=== PATIENT | male | born 1980 | race Caucasian/White ===

== ENCOUNTER 2017-10-27 13:15 | Inpatient (IN) | payer OTHER ==
[2017-10-27 15:17] VITALS: BMI 24.0
--- NOTE | 2017-10-27 16:56 | HP ---
COWS - Scale Resting Pulse: 0= [place] 80 or Below Sweatin=Flushed/Facial Moisture Restless Observation: 1= Difficult to Sit Still Pupil Size: 0= Normal to Room Light Bone or Joint Aches: 2= Severe Diffuse Aches Runny Nose/ Eye Tearin= Runny Nose/Eyes GI Upset > 30mins: 1= Stomach Cramp Tremor Observation: 2= Slight Tremor Visible Yawning Observation: 2= >3x During Session Anxiety or Irritability: 2=Irritable/Anxious Goose Flesh Skin: 3=Piloerection COWS Score: 17 Admission ROS S - HPI Chief Complaint: I need to stop using and get my life back. I am interested in suboxone for continued care. Allergies/Adverse Reactions: Allergies Allergy/AdvReac Type Severity Reaction Status Date / Time No Known Allergies Allergy Verified 10/27/17 16:35 History of Present Illness: pt is a 37yr old male with a history of opioid dependence seeking detox for treatment. Exam Limitations: No Limitations - Ebola screening Have you traveled outside of the country in the last 21 days: No Have you had contact with anyone from an Ebola affected area: No Have you been sick,other than usual withdrawal symptoms: No Do you have a fever: No - Review of Systems Constitutional: Chills, Diaphoresis, Loss of Appetite, Night Sweats EENT: reports: Nose Congestion Respiratory: reports: No Symptoms reported Cardiac: reports: No Symptoms Reported GI: reports: Constipated, Poor Fluid Intake : reports: No Symptoms Reported Musculoskeletal: reports: Back Pain, Joint Pain Integumentary: reports: Flushing, Sweating Neuro: reports: Tingling, Tremors Endocrine: reports: Excessive Sweating, Flushing, Intolerance to Cold, Intolerance to Heat Hematology: reports: No Symptoms Reported Psychiatric: reports: Judgement Intact, Mood/Affect Appropiate, Orientated x3, Agitated, Anxious Other Systems: Reviewed and Negative Patient History - Patient Medical History Hx Anemia: No Hx Asthma: No Hx Chronic Obstructive Pulmonary Disease (COPD): No Hx Cancer: No Hx Cardiac Disorders: No Hx Congestive Heart Failure: No Hx Hypertension: No Hx Hypercholesterolemia: No Hx Pacemaker: No HX Cerebrovascular Accident: No Hx Seizures: No Hx Dementia: No Hx Diabetes: No Hx Gastrointestinal Disorders: No Hx Liver Disease: No Hx Genitourinary Disorders: No Hx Sexually Transmitted Disorders: No Hx Renal Disease (ESRD): No Hx Thyroid Disease: No Hx Human Immunodeficiency Virus (HIV): No Hx Hepatitis C: No Hx Depression: No Hx Suicide Attempt: No (denies any S/I ideation) Hx Bipolar Disorder: No Hx Schizophrenia: No - Patient Surgical History Past Surgical History: No Hx Neurologic Surgery: Yes Hx Cataract Extraction: No Hx Cardiac Surgery: No Hx Lung Surgery: No Hx Breast Surgery: No Hx Breast Biopsy: No Hx Abdominal Surgery: No Hx Appendectomy: No Hx Cholecystectomy: No Hx Genitourinary Surgery: No Hx Section: No Hx Orthopedic Surgery: No Hx Hysterectomy: No Other Surgical History: spinal fusion/ right neural implant for spinal shocks - PPD History Previous Implant?: Yes Documented Results: Negative w/o proof Implanted On Prior R Admission?: No PPD to be Administered?: Yes - Reproductive History Patient is a Female of Child Bearing Age (11 -55 yrs old): No - Smoking Cessation Smoking history: Current every day smoker Have you smoked in the past 12 months: Yes Aproximately how many cigarettes per day: 10 Hx Chewing Tobacco Use: No Initiated information on smoking cessation: Yes 'Breaking Loose' booklet given: 10/27/17 - Substance & Tx. History Hx Alcohol Use: Yes Hx Substance Use: Yes Substance Use Type: Alcohol, Heroin Hx Substance Use Treatment: No - Substances Abused Heroin Route: Inhalation Frequency: 1-2 times per week Amount used: 1 bag Age of first use: 37 Date of Last Use: 10/25/17 Marijuana/Hashish Route: Smoking Frequency: Daily Amount used: 1-2 joints Age of first use: 16 Date of Last Use: 10/20/17 Alcohol Route: Oral Frequency: 1-3 times last 30 days Amount used: 6 pk beer Age of first use: 18 Date of Last Use: 10/27/17 oxycodone Route: Oral Frequency: Daily Amount used: 30mg Age of first use: 33 Date of Last Use: 10/26/17 Family Disease History - Family Disease History Family History: Denies Admission Physical Exam BHS - Vital Signs Vital Signs: Vital Signs - 24 hr 10/27/17 15:15 Temperature 98.1 F Pulse Rate 63 Respiratory 19 Rate Blood Pressure 126/72 - Physical General Appearance: Yes: Appropriately Dressed, Moderate Distress, Tremorous, Irritable, Sweating, Anxious HEENTM: Yes: Hearing grossly Normal, Normal Voice, Nasal Congestion, Rhinorrhea Respiratory: Yes: Lungs Clear, Normal Breath Sounds, No Respiratory Distress Neck: Yes: No masses,lesions,Nodules Breast: Yes: Within Normal Limits Cardiology: Yes: Regular Rhythm, Regular Rate, S1, S2 Abdominal: Yes: Normal Bowel Sounds Genitourinary: Yes: Within Normal Limits Back: Yes: Normal Inspection Musculoskeletal: Yes: Back pain Extremities: Yes: Normal Capillary Refill, Non-Tender, Tremors Neurological: Yes: Fully Oriented, Alert, Normal Response Integumentary: Yes: Normal Color, Diaphoresis Lymphatic: Yes: Within Normal Limits - Diagnostic (1) Opioid dependence with withdrawal Current Visit: Yes Status: Chronic (2) Nicotine dependence Current Visit: Yes Status: Chronic Qualifiers: Nicotine product type: cigarettes Substance use status: uncomplicated Qualified Code(s): F17.210 - Nicotine dependence, cigarettes, uncomplicated (3) H/O spinal fusion Current Visit: No Status: Chronic (4) Alcohol abuse Current Visit: No Status: Chronic Cleared for Admission [facility] - Detox or Rehab [facility] Level of Care: Medically Managed Detox Regimen/Protocol: Methadone [facility] Breath Alcohol Content Breath Alcohol Content: 0.020 Urine Drug Screen - Results Drug Screen Negative: No Urine Drug Screen Results: THC-Marijuana, JASPREET-Cocaine, OPI-Opiates
[2017-10-27] MEDS ORDERED: MAG HYDROX/AL HYDROX/SIMETH 30 ML UNIT-DOSE CUP PO PRN (17:11)
[2017-10-27] MEDS ORDERED: MAGNESIUM CITRATE 300 ML BOTTLE PO PRN (17:11)
[2017-10-27] MEDS ORDERED: IBUPROFEN 400 MG TABLET (FP) PO PRN (17:11)
[2017-10-27] MEDS ORDERED: guaiFENesin/D-METHORPHAN HB 10 ML UNIT-DOSE CUPS PO PRN (17:11)
[2017-10-27] MEDS ORDERED: MENTHOL/PHENOL 1 EACH UD MM PRN (17:11)
[2017-10-27] MEDS ORDERED: LOPERAMIDE HCL 2 MG CAPSULE PO PRN (17:11)
[2017-10-27] MEDS ORDERED: P-EPHED 60MG/TRIPROLIDI 2.5MG TABLET PO PRN (17:11)
[2017-10-27] MEDS ORDERED: ACETAMINOPHEN 325 MG TABLET (FP) PO PRN (17:11)
[2017-10-27] MEDS ORDERED: METHADONE HCL 10 MG TABLET (FOR DETOX USE ONLY) PO ONE ×2 (17:45→23:00)
[2017-10-27] MEDS: diazePAM 5 MG TABLET PO PRN ×2 (18:31→22:18)
[2017-10-27] MEDS: hydrOXYzine PAMOATE 50 MG CAPSULE (FP) PO PRN (20:16)
[2017-10-27] MEDS: NICOTINE POLACRILEX 4 MG GUM BC PRN ×2 (20:16→22:20)
[2017-10-27] MEDS ORDERED: MELATONIN 5 MG TABLETS PO PRN (22:00)
[2017-10-27] MEDS: THIAMINE HCL 100 MG TABLET (FP) PO SCH (22:18)
[2017-10-28] MEDS: diazePAM 5 MG TABLET PO PRN ×4 (05:45→21:49)
[2017-10-28] MEDS: NICOTINE POLACRILEX 4 MG GUM BC PRN ×2 (06:00→12:57)
--- NOTE | 2017-10-28 09:55 | PN ---
BHS COWS - Scale Resting Pulse: 0= [place] 80 or Below Sweatin= Chills/Flushing Restless Observation: 3= Extraneous Movement Pupil Size: 1= Pupils >than Normal Bone or Joint Aches: 2= Severe Diffuse Aches Runny Nose/ Eye Tearin= Runny Nose/Eyes GI Upset > 30mins: 2= Nausea/Diarrhea Tremor Observation of Outstretched Hands: 2= Slight Tremor Visible Yawning Observation: 1= 1-2x During Session Anxiety or Irritability: 2=Irritable/Anxious Goose Flesh Skin: 0=Smooth Skin COWS Score: 16 S Progress Note (SOAP) Subjective: alert,irritable,anxious,interrupted sleep,pain in the body and back Objective: 10/28/17 09:52 Vital Signs Temperature 97.5 F L 10/28/17 09:40 Pulse Rate 67 10/28/17 09:40 Respiratory Rate 18 10/28/17 09:40 Blood Pressure 130/74 10/28/17 09:40 O2 Sat by Pulse Oximetry (%) ekg sinus bradycardia 53/min qt/qtc 382/358 no chest pain,no sob,no dizziness labs pending Assessment: 10/28/17 09:54 withdrawal symptom Plan: continue detox,lidoderm patch
[2017-10-28] MEDS ORDERED: METHADONE HCL 10 MG TABLET (FOR DETOX USE ONLY) PO ONE (10:00)
--- NOTE | 2017-10-28 10:04 | PN ---
[facility] CIWA - CIWA Score Nausea/Vomitin Muscle Tremors: 3 Anxiety: 3 Agitation: 2 Paroxysmal Sweats: 1-Minimal Palms Moist Orientation: 0-Oriented Tacttile Disturbances: 1-Very Mild Itch/Numbness Auditory Disturbances: 1-Very Mild Visual Disturbances: 0-None Headache: 2-Mild CIWA-Ar Total Score: 16 BHS COWS - Scale Resting Pulse: 1= [place] 81-100 Sweatin= Chills/Flushing Restless Observation: 3= Extraneous Movement Pupil Size: 1= Pupils >than Normal Bone or Joint Aches: 2= Severe Diffuse Aches Runny Nose/ Eye Tearin= Runny Nose/Eyes GI Upset > 30mins: 2= Nausea/Diarrhea Tremor Observation of Outstretched Hands: 2= Slight Tremor Visible Yawning Observation: 1= 1-2x During Session Anxiety or Irritability: 2=Irritable/Anxious Goose Flesh Skin: 0=Smooth Skin COWS Score: 17 [facility] Progress Note (SOAP) Subjective: alert,irritable,anxious,interrupted sleep,tremor,pain in the body and back Objective: 10/28/17 10:02 Vital Signs Temperature 97.5 F L 10/28/17 09:40 Pulse Rate 67 10/28/17 09:40 Respiratory Rate 18 10/28/17 09:40 Blood Pressure 130/74 10/28/17 09:40 O2 Sat by Pulse Oximetry (%) 10/28/17 10:03 labs pending Assessment: 10/28/17 10:03 withdrawal symptom Plan: continue detox
[2017-10-28 10:06] LABS: HEMATOCRIT 42.1 % (35.4-49); HEMOGLOBIN 14.3 GM/dL (11.7-16.9); MCH 31.4 pg (25.7-33.7); MCHC 33.9 g/dl (32.0-35.9); MEAN CELL VOLUME 92.5 fl (80-96); MEAN PLT VOLUME 7.4 fl (7.5-11.1); PLATELET COUNT 277 K/MM3 (134-434); RBC 4.55 M/mm3 (4.00-5.60); RDW 13.7 % (11.9-15.9); WHITE BLOOD COUNT 6.9 K/mm3 (4.0-10.0)
[2017-10-28] MEDS: PRENATAL VITAMINS W/ FOLIC ACID TABLET (FP) PO SCH (10:56)
[2017-10-28] MEDS: hydrOXYzine PAMOATE 50 MG CAPSULE (FP) PO PRN (10:56)
[2017-10-28] MEDS: cloNIDine HCL 0.1 MG TABLET PO SCH ×2 (10:56→21:49)
[2017-10-28] MEDS: CYCLOBENZAPRINE HCL 10 MG TABLET (FP) PO PRN ×2 (10:57→21:49)
[2017-10-28] MEDS: NICOTINE 21 MG/24 HOURS TOPICAL PATCH TD SCH (10:57)
[2017-10-28 11:42] LABS: ALBUMIN 3.8 g/dl (3.4-5.0); ANION GAP 7 (8-16); BILIRUBIN,TOTAL 0.5 mg/dL (0.2-1.0); BLOOD UREA NITROGEN 9 mg/dL (7-18); CHLORIDE 108 mmol/L (98-107); CO2 27 mmol/L (21-32); GLUCOSE,RANDOM 83 mg/dL (74-106); POTASSIUM 4.1 mmol/L (3.5-5.1); SGOT/AST 12 U/L (15-37); SGPT/ALT 18 U/L (12-78); SODIUM 142 mmol/L (136-145); TOT PROT 6.7 g/dl (6.4-8.2)
[2017-10-28 11:43] LABS: ALK PHOS 51 U/L (45-117)
--- NOTE | 2017-10-28 12:25 | CONSULT ---
[facility] Psychiatric Consult - Data Date of interview: 10/28/17 Admission source: [facility] Identifying data: This is 37 yo Single H male father of 2 ,resides with family, supported by family. Substance Abuse History: Patient reports drinking since 18 yo,6 packs daily, marijuana since 16 yo,1-2 joints daily,oxycodone since 33 yo about 30 mg po daily,heroin since 37 yo,1 bag daily. Medical History: H/O spinal fusion(back trauma). Psychiatric History: Patient reports sleeping difficulties,periods depressed mood,anxiety.He didint addressed these issues in the past.No suicidal attempts, no psychiatric hospitalizations reported.Patient is willing to start Doxepin 50 mg po hs,Remeron 15 mg po hs. Physical/Sexual Abuse/Trauma History: denies Mental Status Exam - Mental Status Exam Alert and Oriented to: Time, Place, Person Cognitive Function: Grossly Intact Patient Appearance: Unkempt Mood: Sad, Anxious Affect: Mood Congruent, Labile Patient Behavior: Cooperative Speech Pattern: Clear Voice Loudness: Normal Thought Process: Goal Oriented Thought Disorder: Not Present Hallucinations: Denies Suicidal Ideation: Denies Homicidal Ideation: Denies Insight/Judgement: Fair Sleep: Difficulty falling asleep Appetite: Good Muscle strength/Tone: Normal Gait/Station: Normal Psychiatric Findings - Problem List ([place] 1, 2,3) (1) Opioid dependence with withdrawal Current Visit: Yes Status: Chronic (2) Nicotine dependence Current Visit: Yes Status: Chronic Qualifiers: Nicotine product type: cigarettes Substance use status: uncomplicated Qualified Code(s): F17.210 - Nicotine dependence, cigarettes, uncomplicated (3) H/O spinal fusion Current Visit: Yes Status: Chronic (4) Alcohol abuse Current Visit: Yes Status: Chronic (5) Cannabis dependence Current Visit: Yes Status: Chronic (6) Substance induced mood disorder Current Visit: Yes Status: Chronic - Initial Treatment Plan Initial Treatment Plan: Doxepin 50 mg po hs,Remeron 15 mg po hs. will monitor progrerss.
[2017-10-28] MEDS: LIDOCAINE 5% TOPICAL PATCH TP SCH (12:31)
[2017-10-28] MEDS: THIAMINE HCL 100 MG TABLET (FP) PO SCH (21:50)
[2017-10-28] MEDS: MIRTAZAPINE 15 MG TABLET (FP) PO SCH (21:50)
[2017-10-28] MEDS ORDERED: DOXEPIN HCL 50 MG CAPSULE PO SCH (22:00)
[2017-10-28] MEDS: LIDOCAINE PATCH REMOVAL MC SCH (22:27)
[2017-10-29] MEDS: diazePAM 5 MG TABLET PO PRN ×3 (08:06→17:49)
--- NOTE | 2017-10-29 09:04 | EKG ---
Test Reason : Blood Pressure : / mmHG Vent. Rate : 053 BPM Atrial Rate : 053 BPM P-R Int : 156 ms QRS Dur : 090 ms QT Int : 382 ms P-R-T Axes : 035 051 027 degrees QTc Int : 358 ms SINUS BRADYCARDIA OTHERWISE NORMAL ECG NO PREVIOUS ECGS AVAILABLE Confirmed by TRAVIS CRAFT, ALIVIA ([id number]) on 10/29/2017 9:03:42 AM Referred By: Confirmed By:ALIVIA ROBLES MD
[2017-10-29] MEDS ORDERED: METHADONE HCL 5 MG TABLET (FOR DETOX USE ONLY) PO ONE (10:00)
[2017-10-29] MEDS: PRENATAL VITAMINS W/ FOLIC ACID TABLET (FP) PO SCH (10:10)
[2017-10-29] MEDS: cloNIDine HCL 0.1 MG TABLET PO SCH ×2 (10:10→22:08)
[2017-10-29] MEDS: LIDOCAINE 5% TOPICAL PATCH TP SCH (10:11)
[2017-10-29] MEDS: NICOTINE 21 MG/24 HOURS TOPICAL PATCH TD SCH (10:11)
[2017-10-29] MEDS: NICOTINE POLACRILEX 4 MG GUM BC PRN ×4 (10:12→20:25)
[2017-10-29] MEDS: hydrOXYzine PAMOATE 50 MG CAPSULE (FP) PO PRN ×2 (10:12→18:42)
--- NOTE | 2017-10-29 11:42 | PN ---
BHS COWS - Scale Resting Pulse: 0= [place] 80 or Below Sweatin= Chills/Flushing Restless Observation: 3= Extraneous Movement Pupil Size: 1= Pupils >than Normal Bone or Joint Aches: 2= Severe Diffuse Aches Runny Nose/ Eye Tearin= Runny Nose/Eyes GI Upset > 30mins: 2= Nausea/Diarrhea Tremor Observation of Outstretched Hands: 2= Slight Tremor Visible Yawning Observation: 1= 1-2x During Session Anxiety or Irritability: 2=Irritable/Anxious Goose Flesh Skin: 0=Smooth Skin COWS Score: 16 S Progress Note (SOAP) Subjective: alert,irritable,anxious,pain in the body and back,interrupted sleep,tremor Objective: 10/29/17 11:41 Vital Signs Temperature 96.8 F L 10/29/17 09:49 Pulse Rate 58 L 10/29/17 09:49 Respiratory Rate 18 10/29/17 09:49 Blood Pressure 112/65 10/29/17 09:49 O2 Sat by Pulse Oximetry (%) 10/29/17 11:41 Laboratory Last Values WBC 6.9 K/mm3 (4.0-10.0) 10/28/17 07:40 RBC 4.55 M/mm3 (4.00-5.60) 10/28/17 07:40 Hgb 14.3 GM/dL (11.7-16.9) 10/28/17 07:40 Hct 42.1 % (35.4-49) 10/28/17 07:40 MCV 92.5 fl (80-96) 10/28/17 07:40 MCH 31.4 pg (25.7-33.7) 10/28/17 07:40 MCHC 33.9 g/dl (32.0-35.9) 10/28/17 07:40 RDW 13.7 % (11.9-15.9) 10/28/17 07:40 Plt Count 277 K/MM3 (134-434) 10/28/17 07:40 MPV 7.4 fl (7.5-11.1) L 10/28/17 07:40 Sodium 142 mmol/L (136-145) 10/28/17 07:40 Potassium 4.1 mmol/L (3.5-5.1) 10/28/17 07:40 Chloride 108 mmol/L (98-107) H 10/28/17 07:40 Carbon Dioxide 27 mmol/L (21-32) 10/28/17 07:40 Anion Gap 7 (8-16) L 10/28/17 07:40 BUN 9 mg/dL (7-18) 10/28/17 07:40 Creatinine 1.0 mg/dL (0.7-1.3) 10/28/17 07:40 Creat Clearance w eGFR > 60 (>60) 10/28/17 07:40 Random Glucose 83 mg/dL (74-106) 10/28/17 07:40 Calcium 9.0 mg/dL (8.5-10.1) 10/28/17 07:40 Total Bilirubin 0.5 mg/dL (0.2-1.0) 10/28/17 07:40 AST 12 U/L (15-37) L 10/28/17 07:40 ALT 18 U/L (12-78) 10/28/17 07:40 Alkaline Phosphatase 51 U/L (45-117) 10/28/17 07:40 Total Protein 6.7 g/dl (6.4-8.2) 10/28/17 07:40 Albumin 3.8 g/dl (3.4-5.0) 10/28/17 07:40 HIV 1&2 Antibody Screen Negative 10/28/17 07:40 HIV P24 Antigen Negative 10/28/17 07:40 Assessment: 10/29/17 11:41 withdrawal symptom Plan: continue detox,psychiatric evaluation
[2017-10-29] MEDS: CYCLOBENZAPRINE HCL 10 MG TABLET (FP) PO PRN ×2 (12:19→18:42)
[2017-10-29] MEDS: MAGNESIUM HYDROX 2400MG/30ML ORAL SUSPENSION 30 ML CUP PO PRN (12:19)
--- NOTE | 2017-10-29 15:54 | PN ---
Psychiatric Progress Note Vital Signs: Vital Signs Period Temp Pulse Resp BP Sys/Vázquez Pulse Ox Last 24 Hr 96.7 F-97.5 F 47-58 16-20 100-112/64-76 Date of Session: 10/29/17 Chief Complaint:: " I cannot sleep at night.Nothing works." HPI: Day 3 of detoxification treatment for alcohol and opiod dependence.patient is responding favorably to treatment except for complaint of chronic insomnia. ROS: Unremarkable. Current Medications: Active Medications Generic Name Dose Route Start Last Admin Trade Name Freq PRN Reason Stop Dose Admin Acetaminophen 650 mg 10/27/17 17:11 Tylenol - PO Q4H PRN FEVER Al Hydroxide/Mg Hydroxide 30 ml 10/27/17 17:11 Mylanta Oral Suspension - PO Q6H PRN DYSPEPSIA Clonidine 0.1 mg 10/28/17 10:00 10/29/17 10:10 Catapres - PO 0.1 mg BID LEIDY Administration Cyclobenzaprine HCl 10 mg 10/28/17 09:55 10/29/17 12:19 Flexeril - PO 10 mg TID PRN Administration MUSCLE SPASMS Diazepam 10 mg 10/27/17 17:11 10/29/17 12:19 Valium - PO 10/30/17 17:10 10 mg Q4H PRN Administration WITHDRAWAL(CONT SUBST) Doxepin HCl 50 mg 10/28/17 22:00 10/28/17 21:49 Sinequan - PO 50 mg HS LEIDY Administration Eucalyptus/Menthol/Phenol/Sorbitol 1 each 10/27/17 17:11 Cepastat Lozenge - MM Q4H PRN SORE THROAT Guaifenesin 10 ml 10/27/17 17:11 Robitussin Dm - PO Q6H PRN COUGH Hydroxyzine Pamoate 50 mg 10/27/17 17:11 10/29/17 10:12 Vistaril - PO 50 mg Q4H PRN Administration AGITATION Ibuprofen 400 mg 10/27/17 17:11 Motrin - PO Q6H PRN PAIN LEVEL 4-6 Lidocaine 1 patch 10/28/17 10:00 10/29/17 10:11 Lidoderm Patch - TP 1 patch DAILY LEIDY Administration Loperamide HCl 4 mg 10/27/17 17:11 Imodium - PO Q6H PRN DIARRHEA Magnesium Citrate 300 ml 10/27/17 17:11 Citroma - PO Q48H PRN CONSTIPATION Magnesium Hydroxide 30 ml 10/27/17 17:11 10/29/17 12:19 Milk Of Magnesia - PO 30 ml DAILY PRN Administration CONSTIPATION Melatonin 5 mg 10/27/17 22:00 Melatonin PO HS PRN INSOMNIA Methadone HCl 5 mg 11/01/17 06:00 Dolophine - PO 11/01/17 06:01 ONCE@0600 ONE Methadone HCl 15 mg 10/30/17 10:00 Dolophine - PO 10/30/17 10:01 ONCE ONE Methadone HCl 10 mg 10/31/17 10:00 Dolophine - PO 10/31/17 10:01 ONCE ONE Mirtazapine 15 mg 10/28/17 22:00 10/28/17 21:50 Remeron - PO 15 mg HS LEIDY Administration Miscellaneous 1 each 10/28/17 22:00 10/28/17 22:27 Lidoderm Patch Removal MC Not Given DAILY@2200 LEIDY Nicotine 21 mg 10/28/17 10:00 10/29/17 10:11 Nicoderm Patch - TD Not Given DAILY LEIDY Nicotine Polacrilex 4 mg 10/27/17 17:11 10/29/17 13:17 Nicorette Gum - BC 4 mg Q2H PRN Administration NICOTINE REPLACEMENT RX Multivit/Folic Acid/Iron 1 tab 10/28/17 10:00 10/29/17 10:10 Vitamins (Sjr) - PO 1 tab DAILY LEIDY Administration Pseudoephedrine/Triprolidine 1 combo 10/27/17 17:11 Actifed - PO TID PRN NASAL CONGESTION Thiamine HCl 100 mg 10/27/17 22:00 10/28/17 21:50 Vitamin B1 - PO 100 mg HS LEIDY Administration Medication(s) Change(s): Patient states that remeron and doxepin " are not working " and he is requesting " something else like xanax for exemple " .Patient is redirected about medication-seeking behavior.A selection of hypnotic agents is discussed with the patient.Mr Green agrees to a trial of seroquel at a low dose.Side effects/benefits discussed in this session.Patient is made aware of the risk of weight gain,metabolic syndrome,sedation/potential for falls,cardiovascular adverse events and abnormal involuntary movements (in particular).Seroquel 50 mg po hs.Ordered.Mr Green agrees to this plan of care.Doxepin and melatonin are discontinued.Seroquel for titration as clinically indicated in next few days. Current Side Effect: No Lab tests ordered: No Lab tests reviewed: Yes Provider note:: Chart reviewed.Dr Gilmore 's note (10/28/17) : read and appreciated.Case was referred and presented by medical attending, Dr Bennett.Patient is examined.Confirms sleep latency and frequent awakenings during the night.Complains of fatigue in the morning.Otherwise,hospital course is unremarkable.Patient is always visible on the unit.Sociable,conversant and active.Adequate performance in the execution of ADLs.Stable mental status.Benefits of a good sleep hygiene + addition of a low dose of quetiapine : discussed with patient.Mr Green is agreeable with this plan of care. Total face to face time:: 25 Mental Status Exam - Mental Status Exam Alert and Oriented to: Time, Place, Person Cognitive Function: Good Patient Appearance: Well Groomed Mood: Anxious, Hopeful Affect: Appropriate, Normal Range Patient Behavior: Appropriate, Cooperative Speech Pattern: Clear, Appropriate Voice Loudness: Normal Thought Process: Goal Oriented Thought Disorder: Not Present Hallucinations: Denies Suicidal Ideation: Denies Homicidal Ideation: Denies Insight/Judgement: Fair Sleep: Poorly, Difficulty falling asleep Appetite: Good Muscle strength/Tone: Normal Gait/Station: Normal Psychiatric Treatment Plan - Problem List (1) Insomnia Current Visit: Yes (2) Cannabis dependence Current Visit: Yes (3) Nicotine dependence Current Visit: Yes Qualifiers: Nicotine product type: cigarettes Substance use status: uncomplicated Qualified Code(s): F17.210 - Nicotine dependence, cigarettes, uncomplicated (4) Opioid dependence with withdrawal Current Visit: Yes (5) Substance induced mood disorder Current Visit: Yes
[2017-10-29 18:52] LABS: URINE APPEARANCE CLEAR; URINE BILIRUBIN NEGATIVE (<2.0 mg/dL); URINE COLOR LTYELLOW; URINE GLUCOSE (UA) NEGATIVE (NEGATIVE); URINE KETONE NEGATIVE (NEGATIVE); URINE NITRITE NEGATIVE (NEGATIVE); URINE PROTEIN NEGATIVE (NEGATIVE); URINE UROBILINOGEN NEGATIVE mg/dL (0.2-1.0)
[2017-10-29 18:59] LABS: URINE LEUK ESTERASE 1+ (NEGATIVE)
[2017-10-29 19:05] LABS: EPI CELLS RARE /HPF (FEW)
[2017-10-29] MEDS: THIAMINE HCL 100 MG TABLET (FP) PO SCH (22:08)
[2017-10-29] MEDS: MIRTAZAPINE 15 MG TABLET (FP) PO SCH (22:08)
[2017-10-29] MEDS: QUEtiapine FUMARATE 50 MG TABLET PO SCH (22:08)
[2017-10-29] MEDS: LIDOCAINE PATCH REMOVAL MC SCH (23:50)
[2017-10-30] MEDS: diazePAM 5 MG TABLET PO PRN ×3 (07:09→16:25)
[2017-10-30] MEDS: NICOTINE POLACRILEX 4 MG GUM BC PRN ×4 (07:09→20:15)
[2017-10-30] MEDS ORDERED: METHADONE HCL 5 MG TABLET (FOR DETOX USE ONLY) PO ONE (10:00)
[2017-10-30] MEDS: hydrOXYzine PAMOATE 50 MG CAPSULE (FP) PO PRN ×2 (10:11→18:33)
[2017-10-30] MEDS: PRENATAL VITAMINS W/ FOLIC ACID TABLET (FP) PO SCH (10:11)
[2017-10-30] MEDS: NICOTINE 21 MG/24 HOURS TOPICAL PATCH TD SCH (10:12)
[2017-10-30] MEDS: cloNIDine HCL 0.1 MG TABLET PO SCH ×2 (10:12→22:44)
[2017-10-30] MEDS: CYCLOBENZAPRINE HCL 10 MG TABLET (FP) PO PRN (10:12)
[2017-10-30] MEDS: LIDOCAINE 5% TOPICAL PATCH TP SCH (11:15)
--- NOTE | 2017-10-30 11:58 | PN ---
BHS Progress Note (SOAP) Subjective: body aches sweat gi distress tremor restlessness anxiety Objective: 10/30/17 11:56 Vital Signs Temperature 97.3 F L 10/30/17 09:56 Pulse Rate 65 10/30/17 09:56 Respiratory Rate 18 10/30/17 09:56 Blood Pressure 112/75 10/30/17 09:56 O2 Sat by Pulse Oximetry (%) Laboratory Last Values WBC 6.9 K/mm3 (4.0-10.0) 10/28/17 07:40 RBC 4.55 M/mm3 (4.00-5.60) 10/28/17 07:40 Hgb 14.3 GM/dL (11.7-16.9) 10/28/17 07:40 Hct 42.1 % (35.4-49) 10/28/17 07:40 MCV 92.5 fl (80-96) 10/28/17 07:40 MCH 31.4 pg (25.7-33.7) 10/28/17 07:40 MCHC 33.9 g/dl (32.0-35.9) 10/28/17 07:40 RDW 13.7 % (11.9-15.9) 10/28/17 07:40 Plt Count 277 K/MM3 (134-434) 10/28/17 07:40 MPV 7.4 fl (7.5-11.1) L 10/28/17 07:40 Sodium 142 mmol/L (136-145) 10/28/17 07:40 Potassium 4.1 mmol/L (3.5-5.1) 10/28/17 07:40 Chloride 108 mmol/L (98-107) H 10/28/17 07:40 Carbon Dioxide 27 mmol/L (21-32) 10/28/17 07:40 Anion Gap 7 (8-16) L 10/28/17 07:40 BUN 9 mg/dL (7-18) 10/28/17 07:40 Creatinine 1.0 mg/dL (0.7-1.3) 10/28/17 07:40 Creat Clearance w eGFR > 60 (>60) 10/28/17 07:40 Random Glucose 83 mg/dL (74-106) 10/28/17 07:40 Calcium 9.0 mg/dL (8.5-10.1) 10/28/17 07:40 Total Bilirubin 0.5 mg/dL (0.2-1.0) 10/28/17 07:40 AST 12 U/L (15-37) L 10/28/17 07:40 ALT 18 U/L (12-78) 10/28/17 07:40 Alkaline Phosphatase 51 U/L (45-117) 10/28/17 07:40 Total Protein 6.7 g/dl (6.4-8.2) 10/28/17 07:40 Albumin 3.8 g/dl (3.4-5.0) 10/28/17 07:40 Urine Color Ltyellow 10/29/17 Unknown Urine Appearance Clear 10/29/17 Unknown Urine pH 6.0 (5.0-8.0) 10/29/17 Unknown Ur Specific [place] 1.008 (1.001-1.035) 10/29/17 Unknown Urine Protein Negative (NEGATIVE) 10/29/17 Unknown Urine Glucose (UA) Negative (NEGATIVE) 10/29/17 Unknown Urine Ketones Negative (NEGATIVE) 10/29/17 Unknown Urine Blood Negative (NEGATIVE) 10/29/17 Unknown Urine Nitrite Negative (NEGATIVE) 10/29/17 Unknown Urine Bilirubin Negative (<2.0 mg/dL) 10/29/17 Unknown Urine Urobilinogen Negative mg/dL (0.2-1.0) 10/29/17 Unknown Ur Leukocyte Esterase 1+ (NEGATIVE) H 10/29/17 Unknown Urine WBC (Auto) 3 /hpf (3-5) 10/29/17 Unknown Urine RBC (Auto) <1 /hpf (0-3) 10/29/17 Unknown Ur Epithelial Cells Rare /HPF (FEW) 10/29/17 Unknown RPR Titer Nonreactive (NONREACTIVE) 10/28/17 07:40 HIV 1&2 Antibody Screen Negative 10/28/17 07:40 HIV P24 Antigen Negative 10/28/17 07:40 lab noted repeat ua Assessment: 10/30/17 11:57 withdrawal sx Plan: continue detox
[2017-10-30] MEDS: LIDOCAINE PATCH REMOVAL MC SCH (22:43)
[2017-10-30] MEDS: THIAMINE HCL 100 MG TABLET (FP) PO SCH (22:43)
[2017-10-30] MEDS: QUEtiapine FUMARATE 50 MG TABLET PO SCH (22:44)
[2017-10-30] MEDS: MIRTAZAPINE 15 MG TABLET (FP) PO SCH (22:44)
[2017-10-30 22:52] LABS: URINE APPEARANCE SLCLOUDY; URINE BILIRUBIN NEGATIVE (<2.0 mg/dL); URINE COLOR YELLOW; URINE GLUCOSE (UA) NEGATIVE (NEGATIVE); URINE KETONE NEGATIVE (NEGATIVE); URINE LEUK ESTERASE NEGATIVE (NEGATIVE); URINE NITRITE NEGATIVE (NEGATIVE); URINE PROTEIN NEGATIVE (NEGATIVE); URINE UROBILINOGEN NEGATIVE mg/dL (0.2-1.0)
[2017-10-31] MEDS: NICOTINE POLACRILEX 4 MG GUM BC PRN ×5 (06:23→22:30)
[2017-10-31] MEDS: hydrOXYzine PAMOATE 50 MG CAPSULE (FP) PO PRN ×3 (08:12→17:30)
[2017-10-31] MEDS ORDERED: METHADONE HCL 10 MG TABLET (FOR DETOX USE ONLY) PO ONE (10:00)
[2017-10-31] MEDS: NICOTINE 21 MG/24 HOURS TOPICAL PATCH TD SCH (10:29)
[2017-10-31] MEDS: cloNIDine HCL 0.1 MG TABLET PO SCH ×2 (10:29→22:26)
[2017-10-31] MEDS: PRENATAL VITAMINS W/ FOLIC ACID TABLET (FP) PO SCH (10:29)
[2017-10-31] MEDS: LIDOCAINE 5% TOPICAL PATCH TP SCH (10:30)
[2017-10-31] MEDS ORDERED: hydrOXYzine PAMOATE 50 MG CAPSULE (FP) PO PRN (11:12)
--- NOTE | 2017-10-31 11:19 | PN ---
Psychiatric Progress Note Vital Signs: Vital Signs Period Temp Pulse Resp BP Sys/Vázquez Pulse Ox Last 24 Hr 97.0 F-99.1 F 47-74 16-20 90-114/55-70 Date of Session: 10/31/17 Chief Complaint:: Anxiety, insomnia HPI: Patient reports not sleeping well. reports anxiety at day time, reports taking Seroquel prior to admission for insomnia 200mg po qhs, denies suicidal, homicidal ideation, asking for medications intervention. Current Medications: Active Medications Generic Name Dose Route Start Last Admin Trade Name Freq PRN Reason Stop Dose Admin Acetaminophen 650 mg 10/27/17 17:11 Tylenol - PO Q4H PRN FEVER Al Hydroxide/Mg Hydroxide 30 ml 10/27/17 17:11 Mylanta Oral Suspension - PO Q6H PRN DYSPEPSIA Clonidine 0.1 mg 10/28/17 10:00 10/31/17 10:29 Catapres - PO Not Given BID LEIDY Cyclobenzaprine HCl 10 mg 10/31/17 10:45 Flexeril - PO BID ELIDY Eucalyptus/Menthol/Phenol/Sorbitol 1 each 10/27/17 17:11 Cepastat Lozenge - MM Q4H PRN SORE THROAT Guaifenesin 10 ml 10/27/17 17:11 Robitussin Dm - PO Q6H PRN COUGH Hydroxyzine Pamoate 100 mg 10/31/17 11:12 Vistaril - PO Q4H PRN AGITATION Ibuprofen 400 mg 10/27/17 17:11 10/29/17 18:42 Motrin - PO 400 mg Q6H PRN Administration PAIN LEVEL 4-6 Lidocaine 1 patch 10/28/17 10:00 10/31/17 10:30 Lidoderm Patch - TP 1 patch DAILY LEIDY Administration Loperamide HCl 4 mg 10/27/17 17:11 Imodium - PO Q6H PRN DIARRHEA Magnesium Citrate 300 ml 10/27/17 17:11 Citroma - PO Q48H PRN CONSTIPATION Magnesium Hydroxide 30 ml 10/27/17 17:11 10/29/17 12:19 Milk Of Magnesia - PO 30 ml DAILY PRN Administration CONSTIPATION Methadone HCl 5 mg 11/01/17 06:00 Dolophine - PO 11/01/17 06:01 ONCE@0600 ONE Mirtazapine 15 mg 10/28/17 22:00 08/05/18 22:44 Remeron - PO 15 mg HS [facility] Administration Miscellaneous 1 each 10/28/17 22:00 10/30/17 22:43 Lidoderm Patch Removal MC Not Given DAILY@2200 [facility] Nicotine 21 mg 10/28/17 10:00 10/31/17 10:29 Nicoderm Patch - TD 21 mg DAILY LEIDY Administration Nicotine Polacrilex 4 mg 10/27/17 17:11 10/31/17 06:23 Nicorette Gum - BC 4 mg Q2H PRN Administration NICOTINE REPLACEMENT RX Multivit/Folic Acid/Iron 1 tab 10/28/17 10:00 10/31/17 10:29 Vitamins (Sjr) - PO 1 tab DAILY [facility] Administration Pseudoephedrine/Triprolidine 1 combo 10/27/17 17:11 Actifed - PO TID PRN NASAL CONGESTION Quetiapine Fumarate 200 mg 10/31/17 11:12 Seroquel - PO HS [facility] Thiamine HCl 100 mg 10/27/17 22:00 10/30/17 22:43 Vitamin B1 - PO 100 mg HS [facility] Administration Medication(s) Change(s): Seroquel 200mg po qhs. Vistaril 100mg po prn, q4, for anxiety and insomnia Mental Status Exam - Mental Status Exam Alert and Oriented to: Place, Person Cognitive Function: Fair Patient Appearance: Unkempt Mood: Anxious, Irritable Affect: Mood Congruent Patient Behavior: Cooperative Speech Pattern: Appropriate Voice Loudness: Normal Thought Process: Circumstantial, Goal Oriented Thought Disorder: Being Controlled Hallucinations: Denies Suicidal Ideation: Denies Homicidal Ideation: Denies Insight/Judgement: Fair Sleep: Difficulty falling asleep Appetite: Weight loss Muscle strength/Tone: Normal Gait/Station: Normal Additional Comments: Seroquel 200mg po qhs. Vistaril 100mg po prn, q4, for anxiety and insomnia Psychiatric Treatment Plan - Problem List (1) Opioid-induced sleep disorder, insomnia type, with onset during discontinuation/withdrawal Current Visit: Yes (2) Opioid-induced anxiety disorder Current Visit: Yes (3) Cannabis dependence Current Visit: Yes (4) Nicotine dependence Current Visit: Yes Qualifiers: Nicotine product type: cigarettes Substance use status: uncomplicated Qualified Code(s): F17.210 - Nicotine dependence, cigarettes, uncomplicated (5) Opioid dependence with withdrawal Current Visit: Yes (6) Substance induced mood disorder Current Visit: Yes Initial treatment plan: Seroquel 200mg po qhs. Vistaril 100mg po prn, q4, for anxiety and insomnia
[2017-10-31] MEDS: CYCLOBENZAPRINE HCL 10 MG TABLET (FP) PO SCH ×2 (12:28→22:26)
--- NOTE | 2017-10-31 16:42 | PN ---
BHS Progress Note (SOAP) Subjective: Body Aches, Sweating, Anxious, Interrupted Sleep. Objective: PATIENT A & O X 3, OBSERVED AMBULATING ON UNIT. NO ACUTE DISTRESS. 10/31/17 16:40 Vital Signs Temperature 96.9 F L 10/31/17 13:51 Pulse Rate 66 10/31/17 13:51 Respiratory Rate 18 10/31/17 13:51 Blood Pressure 106/70 10/31/17 13:51 O2 Sat by Pulse Oximetry (%) Laboratory Tests 10/28/17 10/28/17 10/28/17 07:40 07:40 07:40 WBC 6.9 RBC 4.55 Hgb 14.3 Hct 42.1 MCV 92.5 MCH 31.4 MCHC 33.9 RDW 13.7 Plt Count 277 MPV 7.4 L Sodium 142 Potassium 4.1 Chloride 108 H Carbon Dioxide 27 Anion Gap 7 L BUN 9 Creatinine 1.0 Creat Clearance w eGFR > 60 Random Glucose 83 Calcium 9.0 Total Bilirubin 0.5 AST 12 L ALT 18 Alkaline Phosphatase 51 Total Protein 6.7 Albumin 3.8 Urine Color Urine Appearance Urine pH Ur Specific [place] Urine Protein Urine Glucose (UA) Urine Ketones Urine Blood Urine Nitrite Urine Bilirubin Urine Urobilinogen Ur Leukocyte Esterase Urine WBC (Auto) Urine RBC (Auto) Ur Epithelial Cells RPR Titer HIV 1&2 Antibody Screen Negative HIV P24 Antigen Negative 10/28/17 10/29/17 10/30/17 07:40 Unknown 16:56 WBC RBC Hgb Hct MCV MCH MCHC RDW Plt Count MPV Sodium Potassium Chloride Carbon Dioxide Anion Gap BUN Creatinine Creat Clearance w eGFR Random Glucose Calcium Total Bilirubin AST ALT Alkaline Phosphatase Total Protein Albumin Urine Color Ltyellow Yellow Urine Appearance Clear Slcloudy Urine pH 6.0 5.0 Ur Specific [place] 1.008 1.015 Urine Protein Negative Negative Urine Glucose (UA) Negative Negative Urine Ketones Negative Negative Urine Blood Negative Negative Urine Nitrite Negative Negative Urine Bilirubin Negative Negative Urine Urobilinogen Negative Negative Ur Leukocyte Esterase 1+ H Negative Urine WBC (Auto) 3 Urine RBC (Auto) <1 Ur Epithelial Cells Rare RPR Titer Nonreactive HIV 1&2 Antibody Screen HIV P24 Antigen LABS NOTED. Assessment: 10/31/17 16:41 WITHDRAWAL SYMPTOMS. Plan: CONTINUE DETOX. PRN FLEXERIL FOR BODY ACHES / MUSCLE SPASMS.
[2017-10-31] MEDS: MAGNESIUM HYDROX 2400MG/30ML ORAL SUSPENSION 30 ML CUP PO PRN (17:33)
[2017-10-31] MEDS ORDERED: QUEtiapine FUMARATE 200 MG TABLET PO SCH (22:00)
[2017-10-31] MEDS: MIRTAZAPINE 15 MG TABLET (FP) PO SCH (22:26)
[2017-10-31] MEDS: THIAMINE HCL 100 MG TABLET (FP) PO SCH (22:26)
[2017-10-31] MEDS: LIDOCAINE PATCH REMOVAL MC SCH (23:25)
[2017-11-01] MEDS: hydrOXYzine PAMOATE 50 MG CAPSULE (FP) PO PRN (05:22)
[2017-11-01] MEDS ORDERED: METHADONE HCL 5 MG TABLET (FOR DETOX USE ONLY) PO ONE (06:00)
[2017-11-01 06:34] VITALS: BP 100/66; PULSE 82; TEMP 97.6
[2017-11-01] MEDS: NICOTINE POLACRILEX 4 MG GUM BC PRN (07:03)
--- NOTE | 2017-11-01 16:44 | PN ---
BHS Progress Note (SOAP) Subjective: Patient reports back ache (patient has history of chronic injury). Patient denies any other withdrawal symptoms. Objective: PATIENT A & O X 3, OBSERVED AMBULATING ON UNIT. NO ACUTE DISTRESS. 11/01/17 16:43 Vital Signs Temperature 97.6 F 11/01/17 06:33 Pulse Rate 82 11/01/17 06:33 Respiratory Rate 18 11/01/17 06:33 Blood Pressure 100/66 11/01/17 06:33 O2 Sat by Pulse Oximetry (%) Laboratory Tests 10/28/17 10/28/17 10/28/17 07:40 07:40 07:40 WBC 6.9 RBC 4.55 Hgb 14.3 Hct 42.1 MCV 92.5 MCH 31.4 MCHC 33.9 RDW 13.7 Plt Count 277 MPV 7.4 L Sodium 142 Potassium 4.1 Chloride 108 H Carbon Dioxide 27 Anion Gap 7 L BUN 9 Creatinine 1.0 Creat Clearance w eGFR > 60 Random Glucose 83 Calcium 9.0 Total Bilirubin 0.5 AST 12 L ALT 18 Alkaline Phosphatase 51 Total Protein 6.7 Albumin 3.8 Urine Color Urine Appearance Urine pH Ur Specific [place] Urine Protein Urine Glucose (UA) Urine Ketones Urine Blood Urine Nitrite Urine Bilirubin Urine Urobilinogen Ur Leukocyte Esterase Urine WBC (Auto) Urine RBC (Auto) Ur Epithelial Cells RPR Titer HIV 1&2 Antibody Screen Negative HIV P24 Antigen Negative 10/28/17 10/29/17 10/30/17 07:40 Unknown 16:56 WBC RBC Hgb Hct MCV MCH MCHC RDW Plt Count MPV Sodium Potassium Chloride Carbon Dioxide Anion Gap BUN Creatinine Creat Clearance w eGFR Random Glucose Calcium Total Bilirubin AST ALT Alkaline Phosphatase Total Protein Albumin Urine Color Ltyellow Yellow Urine Appearance Clear Slcloudy Urine pH 6.0 5.0 Ur Specific [place] 1.008 1.015 Urine Protein Negative Negative Urine Glucose (UA) Negative Negative Urine Ketones Negative Negative Urine Blood Negative Negative Urine Nitrite Negative Negative Urine Bilirubin Negative Negative Urine Urobilinogen Negative Negative Ur Leukocyte Esterase 1+ H Negative Urine WBC (Auto) 3 Urine RBC (Auto) <1 Ur Epithelial Cells Rare RPR Titer Nonreactive HIV 1&2 Antibody Screen HIV P24 Antigen LABS NOTED. Assessment: 11/01/17 16:44 COMPLETION OF DETOX REGIMEN. Plan: PATIENT SCHEDULED FOR DISCHARGE FROM DETOX UNIT TODAY.
--- NOTE | 2017-11-01 16:49 | DS ---
[facility] Detox Discharge Summary Admission Date: 10/27/17 Discharge Date: 11/01/17 - History Present History: Alcohol Dependence, Cannabis Dependence, Opioid Dependence Additional Comments: PATIENT GOING TO [facility] [place] OUTPATIENT PROGRAM FOR AFTERCARE. PATIENT ALSO CONSIDERING [facility]INTE[facility] THERAPY FOR LONG-TERM TREATMENT. LIST OF LOCAL [facility] MEDICAL PROVIDERS GIVEN TO PATIENT AT TIME OF DISCHARGE. PATIENT WAS DISCHARGED FROM DETOX UNIT IN STABLE MEDICAL CONDITION. Pertinent Past History: Insomnia, History of Spinal Fusion, Nicotine Dependence. - Physical Exam Results Vital Signs: Vital Signs Temperature 97.6 F 11/01/17 06:33 Pulse Rate 82 11/01/17 06:33 Respiratory Rate 18 11/01/17 06:33 Blood Pressure 100/66 11/01/17 06:33 O2 Sat by Pulse Oximetry (%) Pertinent Admission Physical Exam Findings: WITHDRAWAL SYMPTOMS. Laboratory Tests 10/28/17 10/28/17 10/28/17 07:40 07:40 07:40 WBC 6.9 RBC 4.55 Hgb 14.3 Hct 42.1 MCV 92.5 MCH 31.4 MCHC 33.9 RDW 13.7 Plt Count 277 MPV 7.4 L Sodium 142 Potassium 4.1 Chloride 108 H Carbon Dioxide 27 Anion Gap 7 L BUN 9 Creatinine 1.0 Creat Clearance w eGFR > 60 Random Glucose 83 Calcium 9.0 Total Bilirubin 0.5 AST 12 L ALT 18 Alkaline Phosphatase 51 Total Protein 6.7 Albumin 3.8 Urine Color Urine Appearance Urine pH Ur Specific [place] Urine Protein Urine Glucose (UA) Urine Ketones Urine Blood Urine Nitrite Urine Bilirubin Urine Urobilinogen Ur Leukocyte Esterase Urine WBC (Auto) Urine RBC (Auto) Ur Epithelial Cells RPR Titer HIV 1&2 Antibody Screen Negative HIV P24 Antigen Negative 10/28/17 10/29/17 10/30/17 07:40 Unknown 16:56 WBC RBC Hgb Hct MCV MCH MCHC RDW Plt Count MPV Sodium Potassium Chloride Carbon Dioxide Anion Gap BUN Creatinine Creat Clearance w eGFR Random Glucose Calcium Total Bilirubin AST ALT Alkaline Phosphatase Total Protein Albumin Urine Color Ltyellow Yellow Urine Appearance Clear Slcloudy Urine pH 6.0 5.0 Ur Specific [place] 1.008 1.015 Urine Protein Negative Negative Urine Glucose (UA) Negative Negative Urine Ketones Negative Negative Urine Blood Negative Negative Urine Nitrite Negative Negative Urine Bilirubin Negative Negative Urine Urobilinogen Negative Negative Ur Leukocyte Esterase 1+ H Negative Urine WBC (Auto) 3 Urine RBC (Auto) <1 Ur Epithelial Cells Rare RPR Titer Nonreactive HIV 1&2 Antibody Screen HIV P24 Antigen LABS NOTED. - Treatment Hospital Course: Detox Protocol Followed, Detoxed Safely, Responded well, Discharged Condition Good Patient has Accepted a Rehab Referral to: PT. GOING TO [facility] [[email or web address] OUTPATIENT PROGRAM FOR AFTERCARE. - Medication Discharge Medications: Ambulatory Orders Doxepin HCl [Sinequan -] 50 mg PO HS #30 capsule 10/28/17 Mirtazapine [Remeron -] 15 mg PO HS #30 tablet 10/28/17 Quetiapine Fumarate [Seroquel -] 100 mg PO HS #30 tablet 10/31/17 hydrOXYzine PAMOATE [Vistaril -] 100 mg PO Q4H PRN #30 capsule 10/31/17 - Diagnosis (1) Alcohol abuse Status: Chronic (2) H/O spinal fusion Status: Chronic (3) Nicotine dependence Status: Chronic Qualifiers: Nicotine product type: cigarettes Substance use status: uncomplicated Qualified Code(s): F17.210 - Nicotine dependence, cigarettes, uncomplicated (4) Opioid dependence with withdrawal Status: Chronic (5) Insomnia Status: Acute Qualifiers: Insomnia type: unspecified Qualified Code(s): G47.00 - Insomnia, unspecified (6) Cannabis dependence Status: Chronic (7) Substance induced mood disorder Status: Chronic - AMA Did Patient Leave Against Medical Advice: No
== END 2017-11-01 10:56 | disposition home or self-care (01) | DRG 773 ==
LOC: YASAS 13:15 → Y6N 17:14 → Y3N 10-30 17:50
PROVIDERS: ADMIT Surgery; ATTEND Surgery
PROC: HZ2ZZZZ Detoxification Services for Substance Abuse Treatment (ICD-10-PCS; principal; 2017-10-27)
DX: F11.23 Opioid dependence with withdrawal (principal); F11.282 Opioid dependence with opioid-induced sleep disorder; F11.288 Opioid dependence with other opioid-induced disorder; F10.10 Alcohol abuse, uncomplicated; F17.210 Nicotine dependence, cigarettes, uncomplicated; F19.24 Other psychoactive substance dependence with psychoactive substance-induced mood disorder; G47.00 Insomnia, unspecified; Z98.1 Arthrodesis status
CPT/HCPCS: 36415; 80053; 81003; 81015; 85027; 86593; 87389; 93005; 93010; J0735

== ENCOUNTER 2018-02-07 11:04 | Inpatient (IN) | payer OTHER ==
[2018-02-07 11:57] VITALS: BMI 24.4
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
[2018-02-07] MEDS ORDERED: LOPERAMIDE HCL 2 MG CAPSULE PO PRN (13:44)
[2018-02-07] MEDS ORDERED: guaiFENesin/D-METHORPHAN HB 10 ML UNIT-DOSE CUPS PO PRN (13:44)
[2018-02-07] MEDS ORDERED: MAGNESIUM HYDROX 2400MG/30ML ORAL SUSPENSION 30 ML CUP PO PRN (13:44)
[2018-02-07] MEDS ORDERED: MAGNESIUM CITRATE 300 ML BOTTLE PO PRN (13:44)
[2018-02-07] MEDS ORDERED: MENTHOL/PHENOL 1 EACH UD MM PRN (13:44)
[2018-02-07] MEDS ORDERED: P-EPHED 60MG/TRIPROLIDI 2.5MG TABLET PO PRN (13:44)
[2018-02-07] MEDS ORDERED: IBUPROFEN 400 MG TABLET (FP) PO PRN (13:44)
[2018-02-07] MEDS ORDERED: MAG HYDROX/AL HYDROX/SIMETH 30 ML UNIT-DOSE CUP PO PRN (13:44)
[2018-02-07] MEDS ORDERED: ACETAMINOPHEN 325 MG TABLET (FP) PO PRN (13:44)
[2018-02-07] MEDS ORDERED: METHADONE HCL 10 MG TABLET (FOR DETOX USE ONLY) PO ONE ×2 (14:15→23:00)
[2018-02-07] MEDS: NICOTINE POLACRILEX 2 MG GUM BC PRN ×4 (14:39→23:54)
[2018-02-07] MEDS: diazePAM 5 MG TABLET PO PRN ×3 (14:39→22:25)
[2018-02-07 17:01] LABS: URINE APPEARANCE CLEAR; URINE BILIRUBIN NEGATIVE (<2.0 mg/dL); URINE COLOR LTYELLOW; URINE GLUCOSE (UA) NEGATIVE (NEGATIVE); URINE KETONE NEGATIVE (NEGATIVE); URINE LEUK ESTERASE NEGATIVE (NEGATIVE); URINE NITRITE NEGATIVE (NEGATIVE); URINE PROTEIN NEGATIVE (NEGATIVE); URINE UROBILINOGEN NEGATIVE mg/dL (0.2-1.0)
[2018-02-07] MEDS: hydrOXYzine PAMOATE 50 MG CAPSULE (FP) PO PRN (17:36)
[2018-02-07] MEDS ORDERED: MELATONIN 5 MG TABLETS PO PRN (22:00)
[2018-02-07] MEDS: THIAMINE HCL 100 MG TABLET (FP) PO SCH (22:25)
[2018-02-08] MEDS: diazePAM 5 MG TABLET PO PRN ×4 (07:15→22:16)
[2018-02-08] MEDS: NICOTINE POLACRILEX 2 MG GUM BC PRN ×7 (07:17→23:10)
[2018-02-08] MEDS: hydrOXYzine PAMOATE 50 MG CAPSULE (FP) PO PRN (08:37)
[2018-02-08] MEDS ORDERED: METHADONE HCL 10 MG TABLET (FOR DETOX USE ONLY) PO ONE (10:00)
[2018-02-08 10:14] LABS: HEMOGLOBIN 14.5 GM/dL (11.7-16.9); MCH 30.3 pg (25.7-33.7); MEAN CELL VOLUME 91.6 fl (80-96); MEAN PLT VOLUME 7.5 fl (7.5-11.1); PLATELET COUNT 299 K/MM3 (134-434); RDW 13.5 % (11.9-15.9); WHITE BLOOD COUNT 5.9 K/mm3 (4.0-10.0)
[2018-02-08] MEDS: PRENATAL VITAMINS W/ FOLIC ACID TABLET (FP) PO SCH (10:20)
[2018-02-08] MEDS: NICOTINE 21 MG/24 HOURS TOPICAL PATCH TD SCH (10:22)
[2018-02-08 11:13] LABS: ALBUMIN 3.8 g/dl (3.4-5.0); ALK PHOS 61 U/L (45-117); ANION GAP 9 MMOL/L (8-16); BILIRUBIN,TOTAL 0.5 mg/dL (0.2-1); BLOOD UREA NITROGEN 11 mg/dL (7-18); CALCIUM 8.8 mg/dL (8.5-10.1); CHLORIDE 107 mmol/L (98-107); CO2 25 mmol/L (21-32); CREATININE 0.8 mg/dL (0.55-1.3); GLUCOSE,RANDOM 73 mg/dL (74-106); POTASSIUM 4.4 mmol/L (3.5-5.1); SGOT/AST 12 U/L (15-37); SGPT/ALT 17 U/L (13-61); SODIUM 141 mmol/L (136-145); TOT PROT 6.8 g/dl (6.4-8.2)
--- NOTE | 2018-02-08 11:35 | PN ---
BHS COWS - Scale Resting Pulse: 0= [place] 80 or Below Sweatin= Chills/Flushing Restless Observation: 3= Extraneous Movement Pupil Size: 0= Normal to Room Light Bone or Joint Aches: 2= Severe Diffuse Aches Runny Nose/ Eye Tearin= Runny Nose/Eyes GI Upset > 30mins: 3= Vomiting/Diarrhea Tremor Observation of Outstretched Hands: 2= Slight Tremor Visible Yawning Observation: 0= None Anxiety or Irritability: 2=Irritable/Anxious Goose Flesh Skin: 0=Smooth Skin COWS Score: 15 BHS Progress Note (SOAP) Subjective: Anxious, tremor, chills, agitation, sweating, interrupted sleep. Patient is requesting suboxone program upon discharge. As per patient, he had back surgery in the past and was Rx pain killer and got addicted to opioid. Patient stated that his cousin gave him a piece of suboxone in the past and it kept him from using opioid for 48 hours and he wants to quit and wants to sign up in a suboxone program. Patient stated that he has no PCP but can follow up with his mother's PCP. Objective: 02/08/18 11:31 Last Vital Signs Temp Pulse Resp BP Pulse Ox 96.6 F L 65 18 104/74 02/08/18 09:02 02/08/18 09:02 02/08/18 09:02 02/08/18 09:02 Laboratory Tests 02/07/18 02/08/18 02/08/18 16:56 07:17 07:17 WBC 5.9 RBC 4.80 Hgb 14.5 Hct 44.0 MCV 91.6 MCH 30.3 MCHC 33.0 RDW 13.5 Plt Count 299 MPV 7.5 Sodium 141 Potassium 4.4 Chloride 107 Carbon Dioxide 25 Anion Gap 9 BUN 11 Creatinine 0.8 Creat Clearance w eGFR > 60 Random Glucose 73 L Calcium 8.8 Total Bilirubin 0.5 AST 12 L ALT 17 Alkaline Phosphatase 61 Total Protein 6.8 Albumin 3.8 Urine Color Ltyellow Urine Appearance Clear Urine pH 5.0 Ur Specific [place] 1.014 Urine Protein Negative Urine Glucose (UA) Negative Urine Ketones Negative Urine Blood Negative Urine Nitrite Negative Urine Bilirubin Negative Urine Urobilinogen Negative Ur Leukocyte Esterase Negative Labs reviewed Assessment: 02/08/18 11:32 Withdrawal sxs Plan: Continue detox Encouraged PO water intake
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
[2018-02-08] MEDS ORDERED: MIRTAZAPINE 15 MG TABLET (FP) PO SCH (22:00)
[2018-02-08] MEDS: THIAMINE HCL 100 MG TABLET (FP) PO SCH (22:16)
[2018-02-09 07:42] VITALS: BP 95/59; PULSE 53; TEMP 97
[2018-02-09] MEDS: NICOTINE 21 MG/24 HOURS TOPICAL PATCH TD SCH (09:29)
[2018-02-09] MEDS: PRENATAL VITAMINS W/ FOLIC ACID TABLET (FP) PO SCH (09:30)
[2018-02-09] MEDS ORDERED: METHADONE HCL 5 MG TABLET (FOR DETOX USE ONLY) PO ONE (10:00)
--- NOTE | 2018-02-09 10:05 | DS ---
[facility] Detox Discharge Summary Admission Date: 02/07/18 Discharge Date: 02/09/18 - History Present History: Cannabis Dependence, Opioid Dependence Additional Comments: Patient demanded to leave AMA. As per patient, he doesn't like it here and prefers to follow up outpatient with a medical provider to start suboxone. As per patient, his counselor already made an appt for 02/13/18 with a MD for him to start suboxone. Bench Worker and staff encouraged patient to complete detox without any success. Patient instructed to call 911 if feeling sick or any withdrawal sxs and to see his PCP within 3 days. Pertinent Past History: Anxiety Cannabis dependence Opioid dependence Nicotine dependence - Physical Exam Results Vital Signs: Vital Signs Temperature 97 F L 02/09/18 07:42 Pulse Rate 53 L 02/09/18 07:42 Respiratory Rate 16 02/09/18 07:42 Blood Pressure 95/59 L 02/09/18 07:42 O2 Sat by Pulse Oximetry (%) Pertinent Admission Physical Exam Findings: Withdrawal symptoms Laboratory Tests 02/07/18 02/08/18 02/08/18 16:56 07:17 07:17 WBC 5.9 RBC 4.80 Hgb 14.5 Hct 44.0 MCV 91.6 MCH 30.3 MCHC 33.0 RDW 13.5 Plt Count 299 MPV 7.5 Sodium 141 Potassium 4.4 Chloride 107 Carbon Dioxide 25 Anion Gap 9 BUN 11 Creatinine 0.8 Creat Clearance w eGFR > 60 Random Glucose 73 L Calcium 8.8 Total Bilirubin 0.5 AST 12 L ALT 17 Alkaline Phosphatase 61 Total Protein 6.8 Albumin 3.8 Urine Color Ltyellow Urine Appearance Clear Urine pH 5.0 Ur Specific [place] 1.014 Urine Protein Negative Urine Glucose (UA) Negative Urine Ketones Negative Urine Blood Negative Urine Nitrite Negative Urine Bilirubin Negative Urine Urobilinogen Negative Ur Leukocyte Esterase Negative RPR Titer HIV 1&2 Antibody Screen HIV P24 Antigen 02/08/18 02/08/18 07:17 07:17 WBC RBC Hgb Hct MCV MCH MCHC RDW Plt Count MPV Sodium Potassium Chloride Carbon Dioxide Anion Gap BUN Creatinine Creat Clearance w eGFR Random Glucose Calcium Total Bilirubin AST ALT Alkaline Phosphatase Total Protein Albumin Urine Color Urine Appearance Urine pH Ur Specific [place] Urine Protein Urine Glucose (UA) Urine Ketones Urine Blood Urine Nitrite Urine Bilirubin Urine Urobilinogen Ur Leukocyte Esterase RPR Titer Nonreactive HIV 1&2 Antibody Screen Negative HIV P24 Antigen Negative Labs reviewed - Medication Discharge Medications: Ambulatory Orders Doxepin HCl [Sinequan -] 50 mg PO HS #30 capsule 10/28/17 Mirtazapine [Remeron -] 15 mg PO HS #30 tablet 10/28/17 Quetiapine Fumarate [Seroquel -] 100 mg PO HS #30 tablet 10/31/17 hydrOXYzine PAMOATE [Vistaril -] 100 mg PO Q4H PRN #30 capsule 10/31/17 - Diagnosis (1) Cannabis dependence Current Visit: Yes Status: Acute (2) Opioid dependence with withdrawal Current Visit: Yes Status: Acute (3) Opioid-induced anxiety disorder Current Visit: Yes Status: Chronic (4) Nicotine dependence Current Visit: Yes Status: Acute Qualifiers: Nicotine product type: cigarettes Substance use status: uncomplicated Qualified Code(s): F17.210 - Nicotine dependence, cigarettes, uncomplicated - AMA Did Patient Leave Against Medical Advice: Yes (Instructed to call 911 if feeling sick or any withdrawal symptoms)
[2018-02-10] MEDS ORDERED: METHADONE HCL 5 MG TABLET (FOR DETOX USE ONLY) PO ONE (10:00)
[2018-02-11] MEDS ORDERED: METHADONE HCL 10 MG TABLET (FOR DETOX USE ONLY) PO ONE (10:00)
[2018-02-12] MEDS ORDERED: METHADONE HCL 5 MG TABLET (FOR DETOX USE ONLY) PO ONE (06:00)
== END 2018-02-09 09:10 | disposition left against medical advice (07) | DRG 770 ==
LOC: YASAS 11:04 → Y3N 13:52
PROC: HZ2ZZZZ Detoxification Services for Substance Abuse Treatment (ICD-10-PCS; principal; 2018-02-07)
DX: F11.23 Opioid dependence with withdrawal (principal); F12.20 Cannabis dependence, uncomplicated; F17.210 Nicotine dependence, cigarettes, uncomplicated; F19.280 Other psychoactive substance dependence with psychoactive substance-induced anxiety disorder; F19.24 Other psychoactive substance dependence with psychoactive substance-induced mood disorder; F19.282 Other psychoactive substance dependence with psychoactive substance-induced sleep disorder; G89.4 Chronic pain syndrome; Z98.1 Arthrodesis status
CPT/HCPCS: 36415; 80053; 81003; 85027; 86593; 87389

== ENCOUNTER 2018-07-11 16:38 | Inpatient (IN) | payer OTHER ==
[2018-07-11 20:39] VITALS: BMI 23.8
--- NOTE | 2018-07-11 21:00 | HP ---
COWS - Scale Resting Pulse: 0= [place] 80 or Below Sweatin=Flushed/Facial Moisture Restless Observation: 5= Unable to Sit Still Pupil Size: 0= Normal to Room Light Bone or Joint Aches: 4=Acute Joint/Muscle Pain Runny Nose/ Eye Tearin= Runny Nose/Eyes GI Upset > 30mins: 1= Stomach Cramp Tremor Observation: 0= None Yawning Observation: 0= None Anxiety or Irritability: 2=Irritable/Anxious Goose Flesh Skin: 0=Smooth Skin COWS Score: 16 CIWA Score - Admission Criteria OAS Guidelines: Admission for Medically Managed Detox: Requires at least one of the followin. CIWA greater than 12 2. Seizures within the past 24 hours 3. Delirium tremens within the past 24 hours 4. Hallucinations within the past 24 hours 5. Acute intervention needed for co occurring medical disorder 6. Acute intervention needed for co occurring psychiatric disorder 7. Severe withdrawal that cannot be handled at a lower level of care (continued vomiting, continued diarrhea, abnormal vital signs) requiring intravenous medication and/or fluids 8. Admission ROS [facility] Chief Complaint: C/O WITHDRAWAL SX'S SEEKING DETOX TXMENT Allergies/Adverse Reactions: Allergies Allergy/AdvReac Type Severity Reaction Status Date / Time No Known Allergies Allergy Verified 02/07/18 13:16 History of Present Illness: 38 Y.O. MALE WITH OPIOID DEPENDENCE HERE FOR DETOX. HE IS SELF REFERRED. HE IS KNOWN TO THE PROGRAM. LAST ADMIT 02/2018. HE HAS SINCE RELAPSED. PRESENTS TODAY WITH C/O WITHDRAWAL SX'S. COWS 12. DENIES HX/O DRUG OVERDOSE/SI/HI/AVH/SEIZURE D /O. DENIES ANY SIGNIFICANT PERIOD OF CLEAN TIME. UNDOMICILED, UNEMPLOYED, DENIES LEGALS Exam Limitations: No Limitations - Ebola screening Have you traveled outside of the country in the last 21 days: No (N) Have you had contact with anyone from an Ebola affected area: No Do you have a fever: No - Review of Systems Constitutional: Chills, Loss of Appetite, Malaise, Night Sweats, Changes in sleep, Unintentional Wgt. Loss EENT: reports: Tearing, Nose Congestion, Dental Problems (MISSING TEETH) Respiratory: reports: No Symptoms reported Cardiac: reports: No Symptoms Reported GI: reports: Constipated, Poor Appetite, Poor Fluid Intake, Abdominal cramping : reports: No Symptoms Reported Musculoskeletal: reports: Joint Pain Integumentary: reports: Sweating (CLAMMINESS) Neuro: reports: No Symptoms reported Endocrine: reports: No Symptoms Reported Hematology: reports: No Symptoms Reported Psychiatric: reports: Orientated x3, Agitated (IRRITABLE), Anxious Other Systems: Reviewed and Negative Patient History - Patient Medical History Hx Anemia: No Hx Asthma: No Hx Chronic Obstructive Pulmonary Disease (COPD): No Hx Cancer: No Hx Cardiac Disorders: No Hx Congestive Heart Failure: No Hx Hypertension: No Hx Hypercholesterolemia: No Hx Pacemaker: No HX Cerebrovascular Accident: No Hx Seizures: No Hx Dementia: No Hx Diabetes: No Hx Gastrointestinal Disorders: No Hx Liver Disease: No Hx Genitourinary Disorders: No Hx Sexually Transmitted Disorders: No Hx Renal Disease (ESRD): No Hx Thyroid Disease: No Hx Human Immunodeficiency Virus (HIV): No Hx Hepatitis C: No Hx Depression: No Hx Suicide Attempt: No Hx Bipolar Disorder: No Hx Schizophrenia: No Other Medical History: CHRONIC BACK PAIN - Patient Surgical History Past Surgical History: Yes Hx Neurologic Surgery: Yes Hx Cataract Extraction: No Hx Cardiac Surgery: No Hx Lung Surgery: No Hx Breast Surgery: No Hx Breast Biopsy: No Hx Abdominal Surgery: No Hx Appendectomy: No Hx Cholecystectomy: No Hx Genitourinary Surgery: No Hx Section: No Hx Orthopedic Surgery: No Hx Hysterectomy: No Other Surgical History: spinal fusion/ right neural implant for spinal shocks Anesthesia Reaction: No - PPD History Previous Implant?: Yes Documented Results: Negative w/proof Implanted On Prior [facility] Admission?: Yes Date: 10/29/17 PPD to be Administered?: No - Smoking Cessation Smoking history: Current every day smoker Have you smoked in the past 12 months: Yes Aproximately how many cigarettes per day: 10 Cigars Per Day: 0 Hx Chewing Tobacco Use: No Initiated information on smoking cessation: Yes 'Breaking Loose' booklet given: 07/11/18 - Substance & Tx. History Hx Alcohol Use: No Hx Substance Use: Yes Substance Use Type: Heroin Hx Substance Use Treatment: Yes ([facility]) - Substances abused Heroin Substance route: Inhalation Frequency: Daily Amount used: 10 BAGS Age of first use: 34 Date of last use: 07/11/18 Family Disease History - Family Disease History Family History: Denies Admission Physical Exam BHS - Vital Signs Vital Signs: Vital Signs - 24 hr 07/11/18 20:37 Temperature 97.8 F Pulse Rate 62 Respiratory 18 Rate Blood Pressure 128/75 - Physical General Appearance: Yes: Appropriately Dressed, Irritable, Anxious HEENTM: Yes: EOMI, Normocephalic, Normal Voice, NATALIE, Pharynx Normal, Nasal Congestion, Other (WATERY EYES) Respiratory: Yes: Chest Non-Tender, Lungs Clear, Normal Breath Sounds, No Respiratory Distress, No Accessory Muscle Use Neck: Yes: No masses,lesions,Nodules, Supple, Trachea in good position Breast: Yes: Breast Exam Deferred Cardiology: Yes: Regular Rhythm, Regular Rate, S1, S2 Abdominal: Yes: Normal Bowel Sounds, Non Tender, Soft Genitourinary: Yes: Within Normal Limits Back: Yes: Normal Inspection Musculoskeletal: Yes: Gait Steady, Other (BODY ACHES) Extremities: Yes: Normal Capillary Refill, Normal Range of Motion, Non-Tender Neurological: Yes: Fully Oriented, Alert, Motor Strength 5/5 Integumentary: Yes: Warm, Clammy Lymphatic: Yes: Within Normal Limits - Diagnostic (1) Opioid dependence with withdrawal Current Visit: Yes Status: Acute Comment: . (2) Opioid-induced sleep disorder, insomnia type, with onset during discontinuation/withdrawal Current Visit: Yes Status: Chronic (3) H/O spinal fusion Current Visit: Yes Status: Chronic (4) Insomnia Current Visit: Yes Status: Chronic Qualifiers: Insomnia type: unspecified Qualified Code(s): G47.00 - Insomnia, unspecified Comment: . (5) Nicotine dependence Current Visit: Yes Status: Chronic Qualifiers: Nicotine product type: cigarettes Substance use status: uncomplicated Qualified Code(s): F17.210 - Nicotine dependence, cigarettes, uncomplicated Comment: . (6) Substance induced mood disorder Current Visit: Yes Status: Chronic Comment: . Cleared for Admission S - Detox or Rehab [facility] Level of Care: Medically Managed Detox Regimen/Protocol: Methadone Claeared for Rehab Admission: No Breathalyzer - Breathalyzer Breathalyzer: 0 Urine Drug Screen - Test Device Lot number: [id number] Expiration date: 02/25/20 - Control Is test valid?: Yes - Results Drug screen NEGATIVE: No Urine drug screen results: THC-Marijuana, MET-Methamphetamine, FEN-Fentanyl, MOP -Opiates, BUP-Suboxone Inpatient Rehab Admission - Rehab Decision to Admit Inpatient rehab admission?: No
[2018-07-11] MEDS ORDERED: MENTHOL/PHENOL 1 EACH UD MM PRN (21:03)
[2018-07-11] MEDS ORDERED: NALOXONE HCL 0.4 MG/ML VIAL IVPUSH PRN (21:03)
[2018-07-11] MEDS ORDERED: ACETAMINOPHEN 325 MG TABLET (FP) PO PRN ×2 (21:03)
[2018-07-11] MEDS ORDERED: IBUPROFEN 400 MG TABLET (FP) PO PRN ×2 (21:03)
[2018-07-11] MEDS ORDERED: MAGNESIUM HYDROX 2400MG/30ML ORAL SUSPENSION 30 ML CUP PO PRN (21:03)
[2018-07-11] MEDS ORDERED: DICYCLOMINE HCL 10 MG CAPSULE PO PRN (21:03)
[2018-07-11] MEDS ORDERED: P-EPHED 60MG/TRIPROLIDI 2.5MG TABLET PO PRN (21:03)
[2018-07-11] MEDS ORDERED: ONDANSETRON *ODT* 4 MG TABLET SL PRN (21:03)
[2018-07-11] MEDS ORDERED: METHOCARBAMOL 500 MG TABLET PO PRN (21:03)
[2018-07-11] MEDS ORDERED: MAG HYDROX/AL HYDROX/SIMETH 30 ML UNIT-DOSE CUP PO PRN (21:03)
[2018-07-11] MEDS ORDERED: BISMUTH SUBSALICYLATE 524 MG/30 ML UD PO PRN (21:03)
[2018-07-11] MEDS ORDERED: hydrOXYzine PAMOATE 25 MG CAPSULE (FP) PO PRN (21:03)
[2018-07-11] MEDS ORDERED: MAGNESIUM CITRATE 300 ML BOTTLE PO PRN (21:03)
[2018-07-11] MEDS ORDERED: MELATONIN 5 MG TABLETS PO PRN (21:03)
[2018-07-11] MEDS ORDERED: NICOTINE POLACRILEX 2 MG GUM BUC PRN (21:03)
[2018-07-11] MEDS ORDERED: cloNIDine HCL 0.1 MG TABLET PO PRN (21:03)
[2018-07-11] MEDS ORDERED: guaiFENesin 200 MG/10 ML 10 ML UNIT-DOSE CUPS PO PRN (21:03)
[2018-07-11] MEDS ORDERED: THIAMINE HCL 100 MG TABLET (FP) PO SCH (22:00)
[2018-07-11 22:42] VITALS: BP 113/74; PULSE 64; TEMP 97.1
[2018-07-11] MEDS ORDERED: METHADONE HCL 10 MG TABLET (FOR DETOX USE ONLY) PO ONE (23:00)
[2018-07-12 08:47] LABS: EPI CELLS 0.7 /HPF (0-5/HPF); PH,URINE 5.5 (5.0-8.0); URINE APPEARANCE TURBID; URINE BACTERIA 1.4 /hpf (NEGATIVE); URINE BILIRUBIN NEGATIVE (NEGATIVE); URINE CASTS 8 /lpf (0-8); URINE COLOR DK YELLOW; URINE GLUCOSE (UA) NEGATIVE (NEGATIVE); URINE KETONE TRACE (NEGATIVE); URINE LEUK ESTERASE TRACE (NEGATIVE); URINE NITRITE NEGATIVE (NEGATIVE); URINE PROTEIN NEGATIVE (NEGATIVE); URINE RBC 1 /hpf (0-4); URINE WBC 2 /hpf (0-5)
[2018-07-12 09:58] LABS: URINE CRYSTALS CALCIUM OXALATE /hpf
[2018-07-12] MEDS ORDERED: PRENATAL VITAMINS W/ FOLIC ACID TABLET (FP) PO SCH (10:00)
[2018-07-12] MEDS ORDERED: NICOTINE 21 MG/24 HOURS TOPICAL PATCH TD SCH (10:00)
[2018-07-12] MEDS ORDERED: METHADONE HCL 10 MG TABLET (FOR DETOX USE ONLY) PO ONE (10:00)
--- NOTE | 2018-07-12 14:18 | DS ---
[facility] Detox Discharge Summary Admission Date: 07/11/18 Discharge Date: 07/12/18 - History Present History: Opioid Dependence Additional Comments: 38 years old male admitted on 07/11/18 for opiate withdrawal stabilization insists to leave the unit that he does not like here patient wants to go t another detox discuss areas [facility] and [facility] for improvement patient refuses to discuss in detail "I just want to leave" patient is alert no acute distress denies suicidal ideation Pertinent Past History: encourage medication assisted maintenance treatment program - Physical Exam Results Vital Signs: Vital Signs Temperature 97.1 F L 07/11/18 22:40 Pulse Rate 64 07/11/18 22:40 Respiratory Rate 18 07/12/18 03:30 Blood Pressure 113/74 07/11/18 22:40 O2 Sat by Pulse Oximetry (%) Pertinent Admission Physical Exam Findings: opiate withdrawal sx Laboratory Last Values Urine Color Dk yellow 07/12/18 00:00 Urine Appearance Turbid 07/12/18 00:00 Urine pH 5.5 (5.0-8.0) 07/12/18 00:00 Ur Specific [place] 1.025 (1.010-1.035) 07/12/18 00:00 Urine Protein Negative (NEGATIVE) 07/12/18 00:00 Urine Glucose (UA) Negative (NEGATIVE) 07/12/18 00:00 Urine Ketones Trace (NEGATIVE) H 07/12/18 00:00 Urine Blood Negative (NEGATIVE) 07/12/18 00:00 Urine Nitrite Negative (NEGATIVE) 07/12/18 00:00 Urine Bilirubin Negative (NEGATIVE) 07/12/18 00:00 Urine Urobilinogen 1.0 mg/dL (0.2-1.0) 07/12/18 00:00 Ur Leukocyte Esterase Trace (NEGATIVE) 07/12/18 00:00 Urine WBC (Auto) 2 /hpf (0-5) 07/12/18 00:00 Urine RBC (Auto) 1 /hpf (0-4) 07/12/18 00:00 Urine Casts (Auto) 8 /lpf (0-8) 07/12/18 00:00 U Epithel Cells (Auto) 0.7 /HPF (0-5/HPF) 07/12/18 00:00 Urine Crystals (Auto) Calcium oxalate /hpf 07/12/18 00:00 Urine Bacteria (Auto) 1.4 /hpf (NEGATIVE) 07/12/18 00:00 lab noted - Treatment Hospital Course: Detox Protocol Followed, Responded well Patient has Accepted a Rehab Referral to: as per counselor arrangement - Medication Discharge Medications: Ambulatory Orders Doxepin HCl [Sinequan -] 50 mg PO HS #30 capsule 10/28/17 Mirtazapine [Remeron -] 15 mg PO HS #30 tablet 10/28/17 Quetiapine Fumarate [Seroquel -] 100 mg PO HS #30 tablet 10/31/17 hydrOXYzine PAMOATE [Vistaril -] 100 mg PO Q4H PRN #30 capsule 10/31/17 - Diagnosis (1) Opioid dependence with withdrawal Status: Acute (2) Nicotine dependence Status: Acute Qualifiers: Nicotine product type: cigarettes Substance use status: in withdrawal Qualified Code(s): F17.213 - Nicotine dependence, cigarettes, with withdrawal (3) Substance induced mood disorder Status: Suspected - AMA Did Patient Leave Against Medical Advice: Yes
[2018-07-13] MEDS ORDERED: METHADONE HCL 10 MG TABLET (FOR DETOX USE ONLY) PO ONE (10:00)
[2018-07-14] MEDS ORDERED: METHADONE HCL 10 MG TABLET (FOR DETOX USE ONLY) PO ONE (10:00)
[2018-07-15] MEDS ORDERED: METHADONE HCL 5 MG TABLET (FOR DETOX USE ONLY) PO ONE (06:00)
== END 2018-07-12 08:42 | disposition left against medical advice (07) | DRG 770 ==
LOC: YASAS 16:38 → Y3N 21:35
PROVIDERS: ADMIT Surgery; ATTEND Surgery
PROC: HZ2ZZZZ Detoxification Services for Substance Abuse Treatment (ICD-10-PCS; principal; 2018-07-11)
DX: F11.23 Opioid dependence with withdrawal (principal); F17.213 Nicotine dependence, cigarettes, with withdrawal; F19.282 Other psychoactive substance dependence with psychoactive substance-induced sleep disorder; F19.24 Other psychoactive substance dependence with psychoactive substance-induced mood disorder; G47.00 Insomnia, unspecified; Z98.1 Arthrodesis status
CPT/HCPCS: 81003

== ENCOUNTER 2019-05-21 15:19 | Inpatient (IN) | payer OTHER ==
--- NOTE | 2019-05-21 17:06 | BHS.RME ---
Substance Use & Tx History - Substance Use History Opiates (Other) Substance amount: oxycodone 60 mg Frequency of use: Daily Substance route: Inhalation (ex: sniffing or snorting) Date of Last Use: 05/21/19 (10 am) Opiates (Heroin) Substance amount: 5 bags Frequency of use: Daily Substance route: Inhalation (ex: sniffing or snorting) Date of Last Use: 05/21/19 ( 10 am) Cannabis Substance amount: 3-4 joints Frequency of use: Daily Substance route: Smoking Nicotine Substance amount: 10 Frequency of use: Daily Substance route: Smoking Date of Last Use: 05/21/19 Alcohol Substance amount: 1 beer or 1 glass wine Frequency of use: Less than 5 times a year - Last Treatment Date of last treatment: 06/2018 Treatment type: Substance Use Disorder (INEZ) Where was last treatment: Detox (Stayed less than 1 day) Physical/Psych/Mental Status - Behavior Eye Contact: Normal - Cooperativeness Cooperativeness: Cooperative - Thinking Thought content: Future oriented - Physical Health Problems Is patient presently having any pain?: No Does patient presently have any injuries (include location): No Does patient currently have a fever: No COWS - Scale Resting Pulse: 0= [place] 80 or Below Sweatin=Flushed/Facial Moisture (Increased facial moisture) Restless Observation: 0= Sits Still Pupil Size: 1= Pupils >than Normal (Pupils = 2 mm) Bone or Joint Aches: 0= None Runny Nose/ Eye Tearin= Nasal Congestion GI Upset > 30mins: 1= Stomach Cramp Tremor Observation: 2= Slight Tremor Visible Yawning Observation: 0= None Anxiety or Irritability: 1=Feels Anxious/Irritable Goose Flesh Skin: 0=Smooth Skin COWS Score: 8
[2019-05-21 17:50] VITALS: BMI 23.5
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
[2019-05-21] MEDS ORDERED: IBUPROFEN 400 MG TABLET (FP) PO PRN (18:35)
[2019-05-21] MEDS ORDERED: MAG HYDROX/AL HYDROX/SIMETH 30 ML UNIT-DOSE CUP PO PRN (18:35)
[2019-05-21] MEDS ORDERED: MAGNESIUM CITRATE 300 ML BOTTLE PO PRN (18:35)
[2019-05-21] MEDS ORDERED: ACETAMINOPHEN 325 MG TABLET (FP) PO PRN ×2 (18:35)
[2019-05-21] MEDS ORDERED: MENTHOL/PHENOL 1 EACH UD MM PRN (18:35)
[2019-05-21] MEDS ORDERED: BISMUTH SUBSALICYLATE 524 MG/30 ML UD PO PRN (18:35)
[2019-05-21] MEDS ORDERED: MAGNESIUM HYDROX 2400MG/30ML ORAL SUSPENSION 30 ML CUP PO PRN (18:35)
[2019-05-21] MEDS: hydrOXYzine PAMOATE 25 MG CAPSULE (FP) PO PRN (19:45)
[2019-05-21] MEDS: THIAMINE HCL 100 MG TABLET (FP) PO SCH (22:13)
[2019-05-21] MEDS: MELATONIN 5 MG TABLETS PO PRN (22:14)
[2019-05-21] MEDS: METHOCARBAMOL 500 MG TABLET PO PRN (22:15)
[2019-05-21] MEDS ORDERED: METHADONE HCL 10 MG TABLET (FOR DETOX USE ONLY) PO ONE (23:00)
[2019-05-22] MEDS: hydrOXYzine PAMOATE 25 MG CAPSULE (FP) PO PRN ×4 (05:27→21:36)
[2019-05-22] MEDS ORDERED: METHADONE HCL 5 MG TABLET (FOR DETOX USE ONLY) ONE (08:44)
[2019-05-22] MEDS ORDERED: METHADONE HCL 10 MG TABLET (FOR DETOX USE ONLY) ONE (08:44)
[2019-05-22 09:59] LABS: HEMATOCRIT 44.9 % (35.4-49); HEMOGLOBIN 15.1 GM/dL (11.7-16.9); MCH 31.1 pg (25.7-33.7); MCHC 33.6 g/dl (32.0-35.9); MEAN CELL VOLUME 92.6 fl (80-96); MEAN PLT VOLUME 7.4 fl (7.5-11.1); PLATELET COUNT 352 K/MM3 (134-434); RBC 4.85 M/mm3 (4.00-5.60); RDW 13.1 % (11.9-15.9); WHITE BLOOD COUNT 6.9 K/mm3 (4.0-10.0)
[2019-05-22] MEDS ORDERED: METHADONE (DETOX) 20 MG, METHADONE (DETOX) 5 MG PO ONE (10:00)
[2019-05-22 10:10] LABS: BILIRUBIN,TOTAL 0.8 mg/dL (0.2-1); BLOOD UREA NITROGEN 13.3 mg/dL (7-18); CALCIUM 9.5 mg/dL (8.5-10.1); POTASSIUM 4.1 mmol/L (3.5-5.1); TOT PROT 7.5 g/dl (6.4-8.2)
[2019-05-22] MEDS: METHOCARBAMOL 500 MG TABLET PO PRN ×2 (10:32→21:36)
[2019-05-22] MEDS: PRENATAL VITAMINS W/ FOLIC ACID TABLET (FP) PO SCH (10:32)
--- NOTE | 2019-05-22 11:40 | PN ---
BHS COWS - Scale Resting Pulse: 0= [place] 80 or Below Sweatin= Chills/Flushing Restless Observation: 0= Sits Still Pupil Size: 1= Pupils >than Normal Bone or Joint Aches: 1= Mild Discomfort Runny Nose/ Eye Tearin= Nasal Congestion GI Upset > 30mins: 1= Stomach Cramp Tremor Observation of Outstretched Hands: 1= Tremor [place], Not Seen Yawning Observation: 0= None Anxiety or Irritability: 1=Feels Anxious/Irritable Goose Flesh Skin: 0=Smooth Skin COWS Score: 7 BHS Progress Note (SOAP) Subjective: 39 years old male admitted on 05/21/19 for opiate withdrawal sx management treating with methadone detox regiment feeling tired restlessness at night prefers to stay in bed today Objective: 05/22/19 11:40 Vital Signs Temperature 97.4 F L 05/22/19 06:36 Pulse Rate 54 L 05/22/19 06:36 Respiratory Rate 16 05/22/19 06:36 Blood Pressure 96/53 L 05/22/19 06:36 O2 Sat by Pulse Oximetry (%) Laboratory Last Values WBC 6.9 K/mm3 (4.0-10.0) 05/22/19 07:30 RBC 4.85 M/mm3 (4.00-5.60) 05/22/19 07:30 Hgb 15.1 GM/dL (11.7-16.9) 05/22/19 07:30 Hct 44.9 % (35.4-49) 05/22/19 07:30 MCV 92.6 fl (80-96) 05/22/19 07:30 MCH 31.1 pg (25.7-33.7) 05/22/19 07:30 MCHC 33.6 g/dl (32.0-35.9) 05/22/19 07:30 RDW 13.1 % (11.9-15.9) 05/22/19 07:30 Plt Count 352 K/MM3 (134-434) 05/22/19 07:30 MPV 7.4 fl (7.5-11.1) L 05/22/19 07:30 Sodium 136 mmol/L (136-145) 05/22/19 07:30 Potassium 4.1 mmol/L (3.5-5.1) 05/22/19 07:30 Chloride 105 mmol/L (98-107) 05/22/19 07:30 Carbon Dioxide 26 mmol/L (21-32) 05/22/19 07:30 Anion Gap 5 MMOL/L (8-16) L 05/22/19 07:30 BUN 13.3 mg/dL (7-18) 05/22/19 07:30 Creatinine 1.0 mg/dL (0.55-1.3) 05/22/19 07:30 Est GFR (CKD-EPI)AfAm 108.63 05/22/19 07:30 Est GFR (CKD-EPI)NonAf 93.73 05/22/19 07:30 Random Glucose 84 mg/dL (74-106) 05/22/19 07:30 Calcium 9.5 mg/dL (8.5-10.1) 05/22/19 07:30 Total Bilirubin 0.8 mg/dL (0.2-1) 05/22/19 07:30 AST 15 U/L (15-37) 05/22/19 07:30 ALT 19 U/L (13-61) 05/22/19 07:30 Alkaline Phosphatase 61 U/L (45-117) 05/22/19 07:30 Total Protein 7.5 g/dl (6.4-8.2) 05/22/19 07:30 Albumin 4.0 g/dl (3.4-5.0) 05/22/19 07:30 RPR Titer Nonreactive (NONREACTIVE) 05/22/19 07:30 lab noted Assessment: 05/22/19 11:40 opiate withdrawal Plan: methadone regiment
[2019-05-22] MEDS: NICOTINE POLACRILEX 2 MG GUM BUC PRN ×2 (17:23→21:38)
[2019-05-22] MEDS: cloNIDine HCL 0.1 MG TABLET PO PRN (21:36)
[2019-05-22] MEDS: THIAMINE HCL 100 MG TABLET (FP) PO SCH (21:36)
[2019-05-22] MEDS: MELATONIN 5 MG TABLETS PO PRN (21:37)
[2019-05-23] MEDS: cloNIDine HCL 0.1 MG TABLET PO PRN ×2 (04:05→18:06)
[2019-05-23] MEDS ORDERED: METHADONE HCL 10 MG TABLET (FOR DETOX USE ONLY) PO ONE (10:00)
[2019-05-23] MEDS: PRENATAL VITAMINS W/ FOLIC ACID TABLET (FP) PO SCH (10:14)
--- NOTE | 2019-05-23 11:29 | PN ---
[facility] COWS - Scale Resting Pulse: 0= [place] 80 or Below Sweatin= No chills or Flushing Restless Observation: 0= Sits Still Pupil Size: 1= Pupils >than Normal Bone or Joint Aches: 1= Mild Discomfort Runny Nose/ Eye Tearin= Nasal Congestion GI Upset > 30mins: 1= Stomach Cramp Tremor Observation of Outstretched Hands: 1= Tremor [place], Not Seen Yawning Observation: 0= None Anxiety or Irritability: 1=Feels Anxious/Irritable Goose Flesh Skin: 0=Smooth Skin COWS Score: 6 [facility] Progress Note (SOAP) Subjective: 39 years old male admitted on 05/21/19 for alcohol and opiate withdrawal sx management treating with methadone detox regiment feeling ok today request ensure tid that poor appetite makes him weak Objective: 05/23/19 11:32 Vital Signs Temperature 97.9 F 05/23/19 08:50 Pulse Rate 57 L 05/23/19 10:13 Respiratory Rate 18 05/23/19 10:13 Blood Pressure 104/68 05/23/19 10:13 O2 Sat by Pulse Oximetry (%) Laboratory Last Values WBC 6.9 K/mm3 (4.0-10.0) 05/22/19 07:30 RBC 4.85 M/mm3 (4.00-5.60) 05/22/19 07:30 Hgb 15.1 GM/dL (11.7-16.9) 05/22/19 07:30 Hct 44.9 % (35.4-49) 05/22/19 07:30 MCV 92.6 fl (80-96) 05/22/19 07:30 MCH 31.1 pg (25.7-33.7) 05/22/19 07:30 MCHC 33.6 g/dl (32.0-35.9) 05/22/19 07:30 RDW 13.1 % (11.9-15.9) 05/22/19 07:30 Plt Count 352 K/MM3 (134-434) 05/22/19 07:30 MPV 7.4 fl (7.5-11.1) L 05/22/19 07:30 Sodium 136 mmol/L (136-145) 05/22/19 07:30 Potassium 4.1 mmol/L (3.5-5.1) 05/22/19 07:30 Chloride 105 mmol/L (98-107) 05/22/19 07:30 Carbon Dioxide 26 mmol/L (21-32) 05/22/19 07:30 Anion Gap 5 MMOL/L (8-16) L 05/22/19 07:30 BUN 13.3 mg/dL (7-18) 05/22/19 07:30 Creatinine 1.0 mg/dL (0.55-1.3) 05/22/19 07:30 Est GFR (CKD-EPI)AfAm 108.63 05/22/19 07:30 Est GFR (CKD-EPI)NonAf 93.73 05/22/19 07:30 Random Glucose 84 mg/dL (74-106) 05/22/19 07:30 Calcium 9.5 mg/dL (8.5-10.1) 05/22/19 07:30 Total Bilirubin 0.8 mg/dL (0.2-1) 05/22/19 07:30 AST 15 U/L (15-37) 05/22/19 07:30 ALT 19 U/L (13-61) 05/22/19 07:30 Alkaline Phosphatase 61 U/L (45-117) 05/22/19 07:30 Total Protein 7.5 g/dl (6.4-8.2) 05/22/19 07:30 Albumin 4.0 g/dl (3.4-5.0) 05/22/19 07:30 RPR Titer Nonreactive (NONREACTIVE) 05/22/19 07:30 lab noted Assessment: 05/23/19 11:32 opiate withdrawal Plan: methadone regiment
[2019-05-23] MEDS: hydrOXYzine PAMOATE 25 MG CAPSULE (FP) PO PRN (15:09)
[2019-05-23] MEDS: NICOTINE POLACRILEX 2 MG GUM BUC PRN ×2 (15:10→20:28)
[2019-05-23] MEDS: THIAMINE HCL 100 MG TABLET (FP) PO SCH (22:21)
[2019-05-23] MEDS: METHOCARBAMOL 500 MG TABLET PO PRN (22:21)
[2019-05-23] MEDS: MELATONIN 5 MG TABLETS PO PRN (22:22)
[2019-05-24] MEDS: hydrOXYzine PAMOATE 25 MG CAPSULE (FP) PO PRN ×3 (02:24→19:08)
[2019-05-24] MEDS: METHOCARBAMOL 500 MG TABLET PO PRN ×2 (04:03→10:07)
[2019-05-24] MEDS ORDERED: METHADONE HCL 5 MG TABLET (FOR DETOX USE ONLY) ONE (08:43)
[2019-05-24] MEDS ORDERED: METHADONE HCL 10 MG TABLET (FOR DETOX USE ONLY) ONE (08:43)
[2019-05-24] MEDS ORDERED: METHADONE (DETOX) 10 MG, METHADONE (DETOX) 5 MG PO ONE (10:00)
[2019-05-24] MEDS: PRENATAL VITAMINS W/ FOLIC ACID TABLET (FP) PO SCH (10:05)
[2019-05-24] MEDS: NICOTINE POLACRILEX 2 MG GUM BUC PRN ×3 (10:56→19:09)
--- NOTE | 2019-05-24 12:38 | PN ---
[facility] COWS - Scale Resting Pulse: 0= [place] 80 or Below Sweatin= No chills or Flushing Restless Observation: 0= Sits Still Pupil Size: 0= Normal to Room Light Bone or Joint Aches: 1= Mild Discomfort Runny Nose/ Eye Tearin= None GI Upset > 30mins: 0= None Tremor Observation of Outstretched Hands: 1= Tremor [place], Not Seen Yawning Observation: 0= None Anxiety or Irritability: 1=Feels Anxious/Irritable Goose Flesh Skin: 0=Smooth Skin COWS Score: 3 B[facility] Progress Note (SOAP) Subjective: 39 years old male admitted on 05/21/19 for opiate withdrawal sx management treating with methadone detox regiment requests medication for anxiety sent prescription to his pharmacy patient prefers not to be seen by a psychiatrist while in detox patient prefers return to his family doctor for anxiety prescription Objective: 05/24/19 12:37 Vital Signs Temperature 96.1 F L 05/24/19 08:33 Pulse Rate 56 L 05/24/19 08:33 Respiratory Rate 16 05/24/19 08:33 Blood Pressure 100/60 05/24/19 08:33 O2 Sat by Pulse Oximetry (%) Laboratory Last Values WBC 6.9 K/mm3 (4.0-10.0) 05/22/19 07:30 RBC 4.85 M/mm3 (4.00-5.60) 05/22/19 07:30 Hgb 15.1 GM/dL (11.7-16.9) 05/22/19 07:30 Hct 44.9 % (35.4-49) 05/22/19 07:30 MCV 92.6 fl (80-96) 05/22/19 07:30 MCH 31.1 pg (25.7-33.7) 05/22/19 07:30 MCHC 33.6 g/dl (32.0-35.9) 05/22/19 07:30 RDW 13.1 % (11.9-15.9) 05/22/19 07:30 Plt Count 352 K/MM3 (134-434) 05/22/19 07:30 MPV 7.4 fl (7.5-11.1) L 05/22/19 07:30 Sodium 136 mmol/L (136-145) 05/22/19 07:30 Potassium 4.1 mmol/L (3.5-5.1) 05/22/19 07:30 Chloride 105 mmol/L (98-107) 05/22/19 07:30 Carbon Dioxide 26 mmol/L (21-32) 05/22/19 07:30 Anion Gap 5 MMOL/L (8-16) L 05/22/19 07:30 BUN 13.3 mg/dL (7-18) 05/22/19 07:30 Creatinine 1.0 mg/dL (0.55-1.3) 05/22/19 07:30 Est GFR (CKD-EPI)AfAm 108.63 05/22/19 07:30 Est GFR (CKD-EPI)NonAf 93.73 05/22/19 07:30 Random Glucose 84 mg/dL (74-106) 05/22/19 07:30 Calcium 9.5 mg/dL (8.5-10.1) 05/22/19 07:30 Total Bilirubin 0.8 mg/dL (0.2-1) 05/22/19 07:30 AST 15 U/L (15-37) 05/22/19 07:30 ALT 19 U/L (13-61) 05/22/19 07:30 Alkaline Phosphatase 61 U/L (45-117) 05/22/19 07:30 Total Protein 7.5 g/dl (6.4-8.2) 05/22/19 07:30 Albumin 4.0 g/dl (3.4-5.0) 05/22/19 07:30 RPR Titer Nonreactive (NONREACTIVE) 05/22/19 07:30 lab noted Assessment: 05/24/19 12:38 opiate withdrawal Plan: methadone regiment
[2019-05-24] MEDS: THIAMINE HCL 100 MG TABLET (FP) PO SCH (22:19)
[2019-05-24] MEDS: MELATONIN 5 MG TABLETS PO PRN (22:20)
[2019-05-25] MEDS: METHOCARBAMOL 500 MG TABLET PO PRN (04:02)
[2019-05-25 06:15] VITALS: BP 106/59; PULSE 56; TEMP 97.6
[2019-05-25] MEDS ORDERED: METHADONE HCL 10 MG TABLET (FOR DETOX USE ONLY) PO ONE (10:00)
--- NOTE | 2019-05-25 12:14 | DS ---
[facility] Detox Discharge Summary Admission Date: 05/21/19 Discharge Date: 05/25/19 - History Present History: Opioid Dependence - Physical Exam Results Vital Signs: Vital Signs Temperature 97.6 F 05/25/19 06:13 Pulse Rate 56 L 05/25/19 06:13 Respiratory Rate 18 05/25/19 06:13 Blood Pressure 106/59 L 05/25/19 06:13 O2 Sat by Pulse Oximetry (%) Pertinent Admission Physical Exam Findings: Pt left before exam by physician per nurse: No signs or symptoms of withdrawal, pt awake, alert, ambulating well. Given discharge instructions - Treatment Hospital Course: Detox Protocol Followed, Detoxed Safely, Responded well, Discharged Condition Good - Medication Discharge Medications: Ambulatory Orders NK [No Known Home Medication] 05/21/19 - Diagnosis (1) Opioid dependence with withdrawal Status: Chronic (2) Nicotine dependence Status: Chronic Qualifiers: Nicotine product type: cigarettes - AMA Did Patient Leave Against Medical Advice: No
[2019-05-26] MEDS ORDERED: METHADONE HCL 5 MG TABLET (FOR DETOX USE ONLY) PO ONE (06:00)
== END 2019-05-25 09:20 | disposition home or self-care (01) | DRG 773 ==
LOC: YASAS 15:19 → Y3N 18:59
PROVIDERS: ADMIT Allergy & Immunology; ATTEND Allergy & Immunology
PROC: HZ2ZZZZ Detoxification Services for Substance Abuse Treatment (ICD-10-PCS; principal; 2019-05-21)
DX: F11.23 Opioid dependence with withdrawal (principal); F12.20 Cannabis dependence, uncomplicated; F17.210 Nicotine dependence, cigarettes, uncomplicated; M54.5 Low back pain; Z98.1 Arthrodesis status; Z96.82 Presence of neurostimulator
CPT/HCPCS: 36415; 80053; 85027; 86593; J0735